=== PATIENT | female | born 1965 | race Asian ===

== ENCOUNTER 2017-09-28 05:16 | Inpatient (IN) | payer BC ==
--- NOTE | 2017-09-25 08:37 | PAT Medication Instructions ---
Service Date Sep 25, 2017. Current Home Medication List Triamcinolone Acet (Triamcinolone Acetonide), 1 APPLN TOP BID PRN for Affected Skin Folds Medication Instructions For Your Scheduled Surgery - Hold the following medications 24 hours prior to surgery: Triamcinolone Acet (Triamcinolone Acetonide), 1 APPLN TOP BID PRN for Affected Skin Folds NOTHING TO EAT OR DRINK AFTER MIDNIGHT THE NIGHT BEFORE SURGERY If you have any questions please call us at [phone] or [phone] or [phone]
[2017-09-25 09:25] LABS: BASO % 1.6 %; BASO ABS # 0.09 K/uL (0-0.2); COMPLETE YES; EOS % 3.2 %; HEMATOCRIT 40.9 % (37-47); IG% 0.2 %; LYMPH % 24.9 %; MEAN CELL VOLUME 96.2 fL (80-100); MEAN CORPUSCULAR HGB CONC 33.3 g/dl (32-36); MEAN PLATELET VOLUME 10.1 fL (7.4-10.4); MONO % 9.4 %; NEUT % 60.7 %; PLATELET COUNT 216 K/uL (130-400); RED BLOOD COUNT 4.25 M/uL (4.2-5.4); WHITE BLOOD COUNT 5.62 K/uL (4.8-10.8)
[2017-09-25 09:37] LABS: PARTIAL THROMBOPLASTIN RATIO 1.1; PROTHROMBIN TIME (PATIENT) 10.5 SECONDS (9.0-12.0)
--- NOTE | 2017-09-25 10:05 | DIAGNOSTIC IMAGING REPORT ---
TWO VIEW CHEST CLINICAL HISTORY: Preoperative examination. FINDINGS: PA and lateral chest radiographs are obtained. No prior studies are available for comparison at the time of dictation. The cardiomediastinal silhouette is unremarkable. The lungs and pleural spaces are clear. There is no pneumothorax. The bony thorax appears intact. IMPRESSION: No active disease in the chest. Electronically signed by: Rubio Vargas M.D. 09/25/2017 10:04 AM Dictated Date/Time: 09/25/2017 10:03 AM
[2017-09-25 10:22] LABS: URINE APPEARANCE CLEAR (CLEAR); URINE BILIRUBIN NEG (NEG); URINE COLOR YELLOW; URINE EPITHELIAL CELL AUTO >30 /lpf (0-5); URINE NITRITE NEG (NEG); URINE SPECIFIC GRAVITY 1.016 (1.000-1.030); UROBILINOGEN NEG (NEG)
[2017-09-25 10:25] LABS: MANUAL MICROSCOPIC REQUIRED? NO; REVIEW REQ? NO
[2017-09-25 12:32] LABS: BUN/CREATININE RATIO 13.2 (10-20); CALCIUM 8.7 mg/dl (8.5-10.1); CREATININE 0.76 mg/dl (0.60-1.20); POTASSIUM 4.2 mmol/L (3.5-5.1)
[2017-09-28] VITALS (11 sets, daily range): BP systolic 90–129; BP diastolic 44–70; PULSE 57–81; TEMP 36.2–37.5; O2SAT 98–100; Ht 162.6 cm; Wt 53.2 kg
[~2017-09-28] VITALS: Ht 162.6 cm; Wt 53.2 kg
[~2017-09-28 05:16] MED LIST: TRMCR515 TOP
[2017-09-28] MEDS ORDERED: LACTATED RINGER'S 1000ML 1,000 ML IV SCH ×2 (06:00)
[2017-09-28] MEDS ORDERED: CEFAZOLIN 2000MG IV PUSH 10 ML IV SCH (06:00)
--- NOTE | 2017-09-28 06:31 | History & Physical Bridge Note ---
H&P Re-Evaluation Bridge Note: I have examined the patient, reviewed the History & Physical and in the interval since the performance of the History & Physical I have noted the following changes of clinical significance: No changes noted She has seen cardiology yesterday for abnormal ECG/ Artifact. Echo was WNL Low risk for surgery per Dr. Vasquez
[2017-09-28] MEDS ORDERED: MIDAZOLAM HCL 1 MG/ML 2ML VIAL ONE (06:48)
[2017-09-28] MEDS ORDERED: FENTANYL CITRATE INJ 50 MCG/1 ML 2 ML VIAL ONE ×3 (06:48→10:32)
[2017-09-28] MEDS ORDERED: MINERAL OIL LIGHT 10 ML BTL ONE (06:58)
[2017-09-28] MEDS ORDERED: BUPIVACAINE 0.5 % 5 MG/1 ML MPF 30ML VIAL ONE ×2 (06:58→09:45)
[2017-09-28] MEDS ORDERED: METHYLENE BLUE 0.5% 10 ML VIAL ONE (06:58)
[2017-09-28] MEDS ORDERED: GLYCOPYRROLATE INJ 0.2 MG/ML VIAL ONE (08:26)
[2017-09-28] MEDS ORDERED: NEOSTIGMINE METHYLSULFATE 5 MG/5 ML SYR ONE (08:26)
[2017-09-28] MEDS ORDERED: ROCURONIUM BROMIDE 10 MG/ML 5 ML VIAL IV ONE ×2 (08:26→11:05)
[2017-09-28] MEDS ORDERED: PROPOFOL IV EMULSION 10 MG/ML 20 ML VIAL IV ONE (08:26)
[2017-09-28] MEDS ORDERED: METOCLOPRAMIDE HCL INJ 5 MG/ML 2 ML VIAL ONE (08:26)
[2017-09-28] MEDS ORDERED: ONDANSETRON INJ 2 MG/ML 2 ML VIAL ONE (08:26)
--- NOTE | 2017-09-28 12:12 | [facility] Post Operative Brief Note ---
Immediate Operative Summary Operative Date Sep 28, 2017. Pre-Operative Diagnosis Fibroid Uterus, Menorrhagia, Pelvic Pain Post-Operative Diagnosis Fibroid Uterus, Menorrhagia, Pelvic Pain Procedure(s) Performed Exam under Anesthesia, Total Laparoscopically assited Vaginal Hysterectomy, Bilateral Salpingectomy, Cystoscopy Surgeon Dr. Church Soaker Soda Worker Surgeon(s) Dr. Willson Estimated Blood Loss 500 cc Findings Enlarged fibroid uterus, 16 weeks size Normal fallopian tubes and ovaries Specimens A: uterus and bilateral fallopian tubes Drains Brown 200 ml Anesthesia GETA Complication(s) None Disposition L&D
[2017-09-28] MEDS ORDERED: PROMETHAZINE HCL INJ 25 MG in SODIUM CHLORIDE 0.9% 50ML 50 ML IV PRN (12:15)
[2017-09-28] MEDS ORDERED: PROMETHAZINE HCL INJ 12.5 MG in SODIUM CHLORIDE 0.9% 50ML 50 ML IV PRN (12:15)
[2017-09-28] MEDS ORDERED: ACETAMINOPHEN IV 650 MG in EMPTY BAG 0 ML IV PRN (12:15)
[2017-09-28] MEDS ORDERED: IBUPROFEN 600 MG TAB PO PRN (12:15)
[2017-09-28] MEDS ORDERED: MAGNESIUM HYDROXIDE SUSP 30 ML UDC PO PRN (12:15)
[2017-09-28] MEDS ORDERED: ONDANSETRON INJ 2 MG/ML 2 ML VIAL IV PRN ×2 (12:15→12:30)
[2017-09-28] MEDS ORDERED: MEPERIDINE HCL 50 MG/ML CARP IV PRN (12:15)
[2017-09-28] MEDS ORDERED: OXYCODONE/ACETAMINOPHEN 5-325 TAB PO PRN ×2 (12:15)
[2017-09-28] MEDS ORDERED: BISACODYL 10 MG SUPP PR PRN (12:15)
[2017-09-28] MEDS ORDERED: SIMETHICONE 80 MG CHEW PO PRN (12:15)
[2017-09-28] MEDS ORDERED: KETOROLAC TROMETHAMINE 15 MG/ML VIAL IV. PRN (12:15)
[2017-09-28] MEDS ORDERED: ACETAMINOPHEN 325 MG TAB PO PRN (12:15)
[2017-09-28] MEDS ORDERED: HYDROmorphone INJ 0.5 MG/0.5 ML SYR ONE (12:16)
[2017-09-28] MEDS ORDERED: ATROPINE SULFATE 0.1 MG/ML 5ML SYR IV PRN (12:30)
[2017-09-28] MEDS ORDERED: KETOROLAC TROMETHAMINE 30 MG/ML VIAL IV. PRN (12:30)
[2017-09-28] MEDS ORDERED: HYDROmorphone INJ 2 MG/ML SYR/VIAL IV PRN (12:30)
--- NOTE | 2017-09-28 12:39 | Anesthesiology Progress Note ---
Anesthesia Post Op Note Date & Time Sep 28, 2017 at 12:39 Vital Signs Vital Signs Past 12 Hours Date Time Temp Pulse Resp B/P (MAP) Pulse Ox O2 Delivery O2 Flow Rate FiO2 09/28/17 12:35 36.4 60 16 111/58 100 Nasal Cannula 2 09/28/17 12:25 67 16 110/57 100 Nasal Cannula 2 09/28/17 12:15 60 16 118/61 100 Oxymask 5 09/28/17 12:07 36.2 66 16 115/64 100 Oxymask 5 09/28/17 06:04 36.6 57 16 129/70 (89) 100 Room Air Notes Mental Status: alert / awake / arousable, participated in evaluation Pt Amnestic to Procedure: Yes Nausea / Vomiting: adequately controlled Pain: adequately controlled Airway Patency, RR, SpO2: stable & adequate BP & HR: stable & adequate Hydration State: stable & adequate Anesthetic Complications: no major complications apparent
--- NOTE | 2017-09-28 13:52 | OPERATIVE REPORT ---
DATE OF OPERATION: 09/28/2017 PREOPERATIVE DIAGNOSIS: The patient is a 51-year-old female Enlarged uterus with multiple fibroids Pelvic pain Heavy menstrual bleeding, Dysmenorrhea Dyspareunia Failed medical therapy and IUD Desires definitive hysterectomy. POSTOPERATIVE DIAGNOSIS: Same. PROCEDURE: Exam under anesthesia, total laparoscopic assisted vaginal hysterectomy, bilateral salpingectomy, cystoscopy. SURGEON: Dr. Sloan. TELEPHONE ORDER SUPERVISOR: Dr. Willson. ESTIMATED BLOOD LOSS: 500ml. SPECIMENS: Uterus and fallopian tubes. DRAINS: Brown drained 200 mL of clear urine. ANESTHESIA: General endotracheal. COMPLICATIONS: None. FINDINGS: Exam under anesthesia revealed anteverted, irregular shaped enlarged fibroid uterus, about 14-16 week size, nonpalpable adnexa. Intraoperative findings enlarged fibroid uterus with multiple intramural fibroids, about 16 weeks' size large, Normal fallopian tubes and ovaries. Normal peritoneal and bowel surfaces, normal uper abdomen. Cystoscopy with normal bladder mucosa and patent ureteral openings into the bladder. OPERATION AND FINDINGS: PROCEDURE: The patient was taken to the operating room where general anesthesia was given without difficulty. She was placed in dorsal lithotomy position, prepared and draped in usual sterile fashion. Exam under anesthesia was done with the above findings and a speculum was placed in the patient's vagina. Cervix was visualized, grasped with single tooth tenaculum. Uterus was sounded to be 9 cm and then a VCare manipulator with a large size cup was placed into the uterus and its balloon was inflated. Its green cap was attached to the cervix with 2 sutures at the 12 and 6 o'clock positions and then blue cap was secured tight to the green cap to provide the manipulation of uterus during surgery. Then the Brown catheter was placed in the bladder to drain during surgery and then gloves were changed. Attention was turned to the patient's abdomen, the 11 mm periumbilical skin incision was made. The fascia was identified and grasped with Luz Elena clamps and elevated. It was entered with Veress needle attached to a syringe. The normal saline test was done. It was flowing freely into the abdominal. It was suctioned back to be clear. Gas was attached to the Veress needle. Pneumoperitoneum was obtained with CO2 gas. The intrabdominal pressure was set to be 15 mmHg. The Veres needle was removed. Then the optiscope ( 11 mm trochar with scope in it) was entered under direct visualization. Intra-abdominal placement was confirmed with the scope. Then the patient was placed in the Trendelenburg position. Uterus was manipulated to be in the midline and enlarged with multiple fibroids and irregular in shape. Normal fallopian tubes and ovaries noted. Then 2 more trocars were placed in the right and left lower quadrants under direct visualization. The uterus was grasped with a grasper on the right cornua. It was retracted to open up the right adnexa for visualization. Then the right round ligament, fallopian tube and uteroovarian ligament were held, coagulatedx3 and cut with Ligasure device. Anterior leaf of the broad ligament was also cut, coagulated with the LigaSure device and the bladder flap was made partially on the right side. Attention was turned to the left uterine adnexa, same thing was done. The uterus was retracted. Left cornua of the uterus was grasped together with the fallopian tube, uterine ovarian ligament, broad ligament,. Those were coagulated and cut. The round ligament with the broad ligament was coagulated and cut with the LigaSure device, the anterior leaf of the broad ligament was also incised and a bladder flap was made and the bladder was retracted down in the anterior cul-de-sac. Hemostasis was achieved with LigaSure device on both sides. Then the uterine arteries were also coagulated on both sides multiple times. The parts of the cardinal ligament on both sides were coagulated and cut with the LigaSure device. There was difficulty visualizing due to the enlarged irregular fibroid uterus and attempt was made to incise from the vaginal cuff laparoscopically to visualize the green cap of the VCare from vagina, unable to find that. There were more tissues around the cervix that were also coagulated and cut with LigaSure device. The pelvis was irrigated and suctioned. Attempt was made to go down in the cardinal ligaments, but again it was technically difficult due to enlarged irregular shaped uterus to visualize deep in the pelvis. Then decision was made to continue the procedure from the vaginal route. The instruments were taken out from the abdomen and attention was turned to the patient's vagina. The manipulator was removed from the cervix. Cervix was visualized, grasped with single tooth tenaculum. A weighted speculum was placed and the vaginal flores were retracted. The cervix was injected with 0.5% Marcaine with epinephrine for hydrodissection. The cervix was circumferentially coagulated with the tip of Bovie and the vaginal mucosa was cut circumferentially, incised off from the cervix. Vaginal mucosa was retracted off bluntly with the tip of finger and the sponge. The posterior cul-de-sac was visualized, grasped with pickups, entered sharply with Metzenbaum scissors and the long weighted speculum was placed in the posterior cul-de-sac. Sacrouterine ligaments were felt, they were held with Sherly clamps on both sides, cut and suture ligated x2 with 0 Vicryl. Then part of the cardinal ligaments also were held with Sherly clamps, cut and suture ligated with 0 Vicryl. Anterior pubovesical ligaments was also visualized. It was incised with the Metzenbaum scissors and then anterior cul-de-sac was entered bluntly with the fingers and a bladder retractor was placed. Again some of the external tissues around the cervix were held with Sehrly clamps, cut and suture ligated and the uterus and cervix was detached from the vaginal mucosa completely. The cervix was held with single tooth tenaculum and then it was continued to the anterior wall of the uterus and from inferior to the superior portion of the uterus. With gentle traction, the whole uterus with the fibroids were delivered and sent for pathology. The ties on sacro uterine ligaments were tied in the middle. The the vaginal cuff was repaired with 0 Vicryl in a running fashion. Another layer was placed with 0 Vicryl in a running fashion. Excellent hemostasis was achieved. Then gloves and the gowns were changed and attention was turned to the patient's abdomen where the laparoscopy was started again. The pelvis was irrigated with warm normal saline and suctioned, it was hemostatic, cuff was intact. The FloSeal foam was placed over the cuff to prevent further oozing in the future and then both both fallopian tubes were held with grasper and incised with LigaSure device on both sides without difficulty and they were sent to pathology. The ovaries remained and pictures were taken. The peritoneum was reapproximated with the EndoStitch with the 0 absorbable suture over the surgical site. Excellent hemostasis was achieved. The upper abdomen, bowel surfaces, appendix, liver and stomach were visualized to be normal. Then Dr. Willson proceeded with cystoscopy. The laparoscopic view was continued by myself while during cystoscopy. The patient was given methylene blue and then cystoscopy was done. The bladder mucosa was intact and normal and it was confirmed from inside laparoscopically where a full and intact bladder was visualized. Then cystoscopy was continued and both ureteral jets were seen on both ureteral openings into the bladder and the cystoscopy was ended. Bladder was drained and placed with a new sterile Brown catheter. The decision was made to end the procedure. The trocars were removed from patient's abdomen. All the gas was emptied and the fascial incisions were grasped with Luz Elena clamps, placed [id number] stitches with 0 Vicryl on each side. The skin incisions were closed with 4-0 Monocryl in a subcuticular fashion. The patient tolerated the procedure well. Sponge, lap, needle and instrument counts were correct x3. She was given 1 gram of cefazolin before surgery and the dose was repeated after 3 hours into surgery with 600 mg of clindamycin. She was taken to recovery room in stable condition. No complications happened and I and Dr. Willson were present during whole procedure. I attest to the content of the Intraoperative Record and any orders documented therein. Any exceptions are noted below. RUSS
--- NOTE | 2017-09-28 14:31 | OB/GYN Progress Note ---
REPROGRAPHICS TECHNICIAN Progress Note Date of Service: Sep 28, 2017. Postop check Patient is seen and examined Feels well, no complaints Pain is under control with meds No CP/ SOB/ Dizziness/ N&V/ VB/ Leg pain Not OOB yet Tolerating clears Explained about the surgery and findings Shown her pictures Date Time Temp Pulse Resp B/P (MAP) Pulse Ox O2 Delivery O2 Flow Rate FiO2 09/28/17 13:15 100 Room Air 09/28/17 13:15 100 Room Air 09/28/17 13:00 59 14 105/57 100 Nasal Cannula 2 09/28/17 12:45 59 16 107/59 100 Nasal Cannula 2 09/28/17 12:35 36.4 60 16 111/58 100 Nasal Cannula 2 09/28/17 12:25 67 16 110/57 100 Nasal Cannula 2 09/28/17 12:15 60 16 118/61 100 Oxymask 5 09/28/17 12:07 36.2 66 16 115/64 100 Oxymask 5 09/28/17 06:04 36.6 57 16 129/70 (89) 100 Room Air 8-Hour Column 09/28/17 09/29/17 09/29/17 16:00 00:00 08:00 Intake Total 2700 ml Output Total 750 ml Balance 1950 ml 24-Hour Column 09/29/17 08:00 Intake Total 2700 ml Output Total 750 ml Balance 1950 ml PE: General: Alert, orientedx3, NAD CVS: S1S2 RRR Lungs: CTAB Abd: soft, NT, ND, BS+, Incisions C/D/I No VB Ext: NT, no edema, SCD's on AP: 51 yo female s/p EUA, TLH, LAVH, ROYAL Salpingectomy, Cystoscopy , pod#0 VSS Afebrile doing well Continue to routine postop care Encourage PO intake, may ambulate D/C real in am Anticipate DC tomorrow
[2017-09-28] MEDS: LACTATED RINGER'S 1000ML 1,000 ML IV SCH ×2 (15:09→23:48)
[2017-09-28] MEDS: CEFAZOLIN IV 2,000 MG in SYRINGE 0 ML IV SCH (17:53)
[2017-09-28] MEDS ORDERED: CEFAZOLIN IV 1,000 MG in DEXTROSE 5% 50ML 50 ML IV SCH (18:00)
[2017-09-28] MEDS: CLINDAMYCIN IV 600 MG in DEXTROSE 5% 50ML 50 ML IV SCH (19:22)
[2017-09-28] MEDS: DOCUSATE SODIUM 100 MG CAP PO SCH (21:45)
[2017-09-28] MEDS ORDERED: NURSING VERBAL MED ORDER ONE ×2 (21:45→23:30)
[2017-09-28 22:00] LABS: HEMATOCRIT 31.4 % (37-47); MEAN CELL VOLUME 95.4 fL (80-100); MEAN CORPUSCULAR HEMOGLOBIN 31.3 pg (25-34); MEAN PLATELET VOLUME 8.9 fL (7.4-10.4); PLATELET COUNT 165 K/uL (130-400); RED BLOOD COUNT 3.29 M/uL (4.2-5.4)
[2017-09-28] MEDS ORDERED: LACTATED RINGER'S 1000ML 500 ML IV ONE ×2 (22:00→23:30)
[2017-09-28 22:36] LABS: MEAN CORPUSCULAR HGB CONC 32.8 g/dl (32-36)
[2017-09-29] VITALS (8 sets, daily range): BP systolic 92–108; BP diastolic 45–56; PULSE 76–81; TEMP 37.1–38; O2SAT 98–100
[2017-09-29] MEDS ORDERED: METOCLOPRAMIDE HCL INJ 5 MG/ML 2 ML VIAL IV PRN
[2017-09-29] MEDS: CEFAZOLIN IV 2,000 MG in SYRINGE 0 ML IV SCH ×2 (02:08→10:24)
[2017-09-29] MEDS: CLINDAMYCIN IV 600 MG in DEXTROSE 5% 50ML 50 ML IV SCH ×2 (02:21→10:49)
[2017-09-29 06:42] LABS: BASO % 0.2 %; BASO ABS # 0.02 K/uL (0-0.2); COMPLETE YES; EOS % 0.4 %; HEMATOCRIT 28.4 % (37-47); IG% 0.3 %; LYMPH % 10.9 %; LYMPH ABS # 1.11 K/uL (1.2-3.4); MEAN CELL VOLUME 96.6 fL (80-100); MEAN CORPUSCULAR HEMOGLOBIN 31.6 pg (25-34); MEAN CORPUSCULAR HGB CONC 32.7 g/dl (32-36); MEAN PLATELET VOLUME 9.1 fL (7.4-10.4); MONO % 7.1 %; NEUT % 81.1 %; PLATELET COUNT 134 K/uL (130-400); RED BLOOD COUNT 2.94 M/uL (4.2-5.4); WHITE BLOOD COUNT 10.23 K/uL (4.8-10.8)
[2017-09-29 07:15] LABS: BUN/CREATININE RATIO 10.1 (10-20); CALCIUM 6.9 mg/dl (8.5-10.1); CREATININE 0.51 mg/dl (0.60-1.20); POTASSIUM 3.7 mmol/L (3.5-5.1)
--- NOTE | 2017-09-29 07:41 | OB/GYN Progress Note ---
CONTINUOUS IMPROVEMENT INTERN Progress Note Date of Service: Sep 29, 2017. Postop DAY #1 Patient is seen and examined Feels well, no complaints Pain is under control, /, she has not asked for pain medication since surgery yesterday No CP/ SOB/ VB/ Leg pain Not OOB yet due to being dizzy on and off She was nauseas whicc made her dizzy after she got Cefazolin Vomited once yesterday afternoon Has been Tolerating clears She is hungry and likes to eat regular food and she likes to ambulate now She was evaluated by Dr. Hauser last night due to low BP, her UOP was excellent her pulse had been stable H&H was stable Date Time Temp Pulse Resp B/P (MAP) Pulse Ox O2 Delivery O2 Flow Rate FiO2 09/29/17 04:40 37.6 81 16 102/56 (71) 98 Room Air 09/29/17 02:25 76 16 98/54 (69) 98 Room Air 09/28/17 23:50 90/52 (65) 09/28/17 23:45 99 Room Air 09/28/17 23:45 37.4 79 14 93/44 (60) 99 Room Air 09/28/17 22:20 77 92/48 (63) 99 Room Air 09/28/17 21:30 37.5 77 14 90/48 (62) 98 Room Air 09/28/17 19:20 Room Air 09/28/17 19:20 37.5 81 14 96/44 (61) 98 Room Air 09/28/17 16:20 36.9 69 18 113/56 (75) 100 Room Air 09/28/17 16:20 100 Room Air 09/28/17 15:15 36.7 62 18 99/62 (74) 100 Room Air 09/28/17 14:15 36.2 67 18 108/55 (72) 100 Room Air 09/28/17 13:45 36.3 63 18 105/56 (72) 100 Room Air 09/28/17 13:15 100 Room Air 09/28/17 13:15 100 Room Air 09/28/17 13:00 59 14 105/57 100 Nasal Cannula 2 09/28/17 12:45 59 16 107/59 100 Nasal Cannula 2 09/28/17 12:35 36.4 60 16 111/58 100 Nasal Cannula 2 09/28/17 12:25 67 16 110/57 100 Nasal Cannula 2 09/28/17 12:15 60 16 118/61 100 Oxymask 5 09/28/17 12:07 36.2 66 16 115/64 100 Oxymask 5 UOP: 1150 ml last shift Last 24 Hours Test 09/28/17 19:54 09/28/17 21:49 09/29/17 06:31 Hemoglobin 10.6 g/dL 10.3 g/dL 9.3 g/dL Hematocrit 32.0 % 31.4 % 28.4 % White Blood Count 11.00 K/uL 10.23 K/uL Red Blood Count 3.29 M/uL 2.94 M/uL Mean Corpuscular Volume 95.4 fL 96.6 fL Mean Corpuscular Hemoglobin 31.3 pg 31.6 pg Mean Corpuscular Hemoglobin Concent 32.8 g/dl 32.7 g/dl RDW Standard Deviation 45.0 fL 46.7 fL RDW Coefficient of Variation 12.9 % 13.3 % Platelet Count 165 K/uL 134 K/uL Mean Platelet Volume 8.9 fL 9.1 fL Neutrophils (%) (Auto) 81.1 % Lymphocytes (%) (Auto) 10.9 % Monocytes (%) (Auto) 7.1 % Eosinophils (%) (Auto) 0.4 % Basophils (%) (Auto) 0.2 % Neutrophils # (Auto) 8.30 K/uL Lymphocytes # (Auto) 1.11 K/uL Monocytes # (Auto) 0.73 K/uL Eosinophils # (Auto) 0.04 K/uL Basophils # (Auto) 0.02 K/uL Immature Granulocyte % (Auto) 0.3 % Immature Granulocyte # (Auto) 0.03 K/uL Sodium Level 139 mmol/L Potassium Level 3.7 mmol/L Chloride Level 110 mmol/L Carbon Dioxide Level 26 mmol/L Anion Gap 3.0 mmol/L Blood Urea Nitrogen 5 mg/dl Creatinine 0.51 mg/dl Est Creatinine Clear Calc Drug Dose 112.1 ml/min Estimated GFR () 130.9 Estimated GFR (Non- 112.9 BUN/Creatinine Ratio 10.1 Random Glucose 87 mg/dl Calcium Level 6.9 mg/dl PE: General: Alert, orientedx3, NAD CVS: S1S2 RRR Lungs: CTAB Abd: soft, flat, NT, ND, BS+, Incisions C/D/I Minimal dark VB Ext: NT, no edema, SCD's on AP: 51 yo s/p EUA, TLH, LAVH, BL Salpingectomy, Cystoscopy, POD#1 VSS Afebrile doing well Continue to routine postop care Encourage PO intake, may ambulate D/C real now Anticipate DC this afternoon
[2017-09-29] MEDS ORDERED: OXYC-57 PO (07:42)
[2017-09-29] MEDS ORDERED: METO-157 PO (07:42)
[2017-09-29] MEDS ORDERED: MTR600X PO (07:42)
--- NOTE | 2017-09-29 07:46 | Discharge Instructions ---
Discharge Instructions Date of Service Sep 29, 2017. Admission Reason for Admission: Fibroid Uterus, Menorrhagia, Pelvic Pain Discharge Discharge Diagnosis / Problem: LAVH, Bilateral salpingectomy, Cystoscopy Discharge Goals Goal(s): Routine recovery after surgery Activity Recommendations Activity Limitations: as noted below Lifting Limitations: no more than 10 pounds Exercise/Sports Limitations: until after follow-up appointment May Resume Sexual Activity: after follow-up appointment Shower/Bathe: keep incision dry Driving or Machine Use: SPECIAL CARE INSTRUCTIONS: * Check temperature twice daily for one week. Report any elevation over 100.4 degrees Fahrenheit (38.0 degrees Celsius). * Call office in the next few days for return appointment. * You may experience some vaginal spotting and/or bleeding, this is normal for one or two weeks and should not alarm you. * Post-operative discomfort may consist of a sore throat, a "bloated" feeling and pain in the shoulders. These are normal symptoms which usually only last for two or three days. * Nothing per vagina for 8 weeks * No exercise or strenuous activity for 2 weeks, increase your activity slowly as tolerated after 2 weeks Discussed this with your surgeon in the office * Call with fever/ chills/ unable to pass gas or move your bowels, chest pain, shortness of breath, leg swelling or pain FOLLOW UP VISIT: Keep any scheduled doctor appointments. . Current Hospital Diet Patient's current hospital diet: Clear Liquid Diet Discharge Diet Recommended Diet: Regular Diet Procedures Procedures Performed: Exam under Anesthesia, Total Laparoscopically assited Vaginal Hysterectomy, Bilateral Salpingectomy, Cystoscopy Pending Studies Studies pending at discharge: no Medical Emergencies . Who to Call and When: Medical Emergencies: If at any time you feel your situation is an emergency, please call 911 immediately. . Non-Emergent Contact Non-Emergency issues call your: Surgeon Call Non-Emergent contact if: you have a fever, temperature is above 100.5, your pain is not controlled, your pain is worsening, your pain is unusual for you, wound has increased drainage, wound has increased redness, wound has increased pain, you have any medication questions . . "Provider Documentation" section prepared by Cade Sloan. . VTE Core Measure Inpt VTE Proph given/why not?: Treatment not indicated
[2017-09-29] MEDS: DOCUSATE SODIUM 100 MG CAP PO SCH (09:00)
--- NOTE | 2017-09-29 09:35 | OB/GYN Progress Note ---
PROFESSIONAL CASTER Progress Note Date of Service: Sep 29, 2017. Patient is reevaluated She has not been OOB yet She ate her breakfast with no N&V She does not wan to take pain pills because she thinks they will give her nausea She is sensitive to all medications which make her nauseous. She does not want to take the next dose of IV AB Recommended to complete 24 hours of IV AB to prevent infection Explained about surgery, was long, Laparoscopic and vaginal route Discussed in details options for nausea and pain management Recommended ambulation Aware of risk of DVT, PE if immobile After long discussion she decided to try Zofran ODT and then oral pain meds Al questions were answered
[2017-09-29] MEDS ORDERED: ONDANSETRON 4MG OD TAB PO PRN (09:45)
--- NOTE | 2017-09-29 11:34 | OB/GYN Progress Note ---
PROFILER Progress Note Date of Service: Sep 29, 2017. Patient temp is 38 F She feels well no complaints No sorethroat/ signs of URI or LRI No cough/ sputum No dysuria/ leg pain or swelling PE: [place] moist oropharynx, Nect [place] no LAP felt CVS: S1S2 RRR Lungs: CTAB Abd: soft, NT, NT, Dressings dry Dark minimal spot on pad Ext: NT, No edema Last 24 Hours Test 09/28/17 19:54 09/28/17 21:49 09/29/17 06:31 09/29/17 11:27 Hemoglobin 10.6 g/dL 10.3 g/dL 9.3 g/dL Hematocrit 32.0 % 31.4 % 28.4 % White Blood Count 11.00 K/uL 10.23 K/uL Red Blood Count 3.29 M/uL 2.94 M/uL Mean Corpuscular Volume 95.4 fL 96.6 fL Mean Corpuscular Hemoglobin 31.3 pg 31.6 pg Mean Corpuscular Hemoglobin Concent 32.8 g/dl 32.7 g/dl RDW Standard Deviation 45.0 fL 46.7 fL RDW Coefficient of Variation 12.9 % 13.3 % Platelet Count 165 K/uL 134 K/uL Mean Platelet Volume 8.9 fL 9.1 fL Neutrophils (%) (Auto) 81.1 % Lymphocytes (%) (Auto) 10.9 % Monocytes (%) (Auto) 7.1 % Eosinophils (%) (Auto) 0.4 % Basophils (%) (Auto) 0.2 % Neutrophils # (Auto) 8.30 K/uL Lymphocytes # (Auto) 1.11 K/uL Monocytes # (Auto) 0.73 K/uL Eosinophils # (Auto) 0.04 K/uL Basophils # (Auto) 0.02 K/uL Immature Granulocyte % (Auto) 0.3 % Immature Granulocyte # (Auto) 0.03 K/uL Sodium Level 139 mmol/L Potassium Level 3.7 mmol/L Chloride Level 110 mmol/L Carbon Dioxide Level 26 mmol/L Anion Gap 3.0 mmol/L Blood Urea Nitrogen 5 mg/dl Creatinine 0.51 mg/dl Est Creatinine Clear Calc Drug Dose 112.1 ml/min Estimated GFR () 130.9 Estimated GFR (Non- 112.9 BUN/Creatinine Ratio 10.1 Random Glucose 87 mg/dl Calcium Level 6.9 mg/dl All questions were answered Continue to monitor
--- NOTE | 2017-09-29 13:09 | DIAGNOSTIC IMAGING REPORT ---
CHEST 2 VIEWS ROUTINE CLINICAL HISTORY: Postoperative fever. COMPARISON STUDY: Chest radiograph September 25, 2017. FINDINGS: A nipple shadow projects over the right lower lung. Trace pneumoperitoneum is likely postsurgical. There is no evidence of pulmonary edema. There is no pneumothorax. There may be trace bilateral pleural effusions. Bibasilar opacities are noted. IMPRESSION: 1. Interval development of bibasilar opacities which could reflect pneumonia or atelectasis. 2. Suspected trace bilateral pleural effusions. 3. Trace pneumoperitoneum which is likely postsurgical. Electronically signed by: Calin Chopra M.D. 09/29/2017 1:08 PM Dictated Date/Time: 09/29/2017 1:06 PM
[2017-09-29 13:38] LABS: URINE APPEARANCE CLEAR (CLEAR); URINE BILIRUBIN NEG (NEG); URINE COLOR YELLOW; URINE EPITHELIAL CELL AUTO >30 /lpf (0-5); URINE NITRITE NEG (NEG); URINE SPECIFIC GRAVITY 1.014 (1.000-1.030); UROBILINOGEN NEG (NEG)
[2017-09-29 13:40] LABS: MANUAL MICROSCOPIC REQUIRED? NO; REVIEW REQ? NO
[2017-09-29] MEDS ORDERED: ZFRODT4HP PO (14:47)
[2017-09-29] MEDS ORDERED: AMOX1TAB43 PO (14:47)
[2017-09-29] MEDS ORDERED: ONDA4TAB10 SL (14:54)
--- NOTE | 2017-09-29 15:30 | OB/GYN Progress Note ---
DE ICER FINISHER Progress Note Date of Service: Sep 29, 2017. Patient is reevaluated She states she feels much better No more N&V No fever/ chills Pain is under control with oral meds Discussed the results CXR: Atelectasis vs pneumonia Discussed with hospitalist they are okay sending her home with Augmentin Plan to repeat vitals if still afebrile d/c home after dinner Will start 1st dose of Augmentin tonight All questions were answered Discussed about postop care, when to call All questions were answered She was very thankful
[2017-09-29] MEDS ORDERED: AMOXICILLIN/CLAVULANATE TAB 875 MG TAB PO SCH (17:30)
== END 2017-09-29 17:45 | disposition home or self-care (01) | DRG 743 ==
LOC: C.ACU 05:16 → C.MS4N 06:00 → ENRESERV 12:54
PROVIDERS: ADMIT Obstetrics & Gynecology; ATTEND Obstetrics & Gynecology
PROC: 0UT9FZZ Resection of Uterus, Via Natural or Artificial Opening With Percutaneous Endoscopic Assistance (ICD-10-PCS; principal; 2017-09-28 07:00)
PROC: 0UT7FZZ Resection of Bilateral Fallopian Tubes, Via Natural or Artificial Opening With Percutaneous Endoscopic Assistance (ICD-10-PCS; principal; 2017-09-28 07:00)
PROC: 0TJB8ZZ Inspection of Bladder, Via Natural or Artificial Opening Endoscopic (ICD-10-PCS; 2017-09-28 07:00)
DX: D25.9 Leiomyoma of uterus, unspecified (principal); N92.0 Excessive and frequent menstruation with regular cycle; R10.2 Pelvic and perineal pain; R50.9 Fever, unspecified

== ENCOUNTER 2017-10-05 20:16 | Inpatient (IN) | payer BC ==
[~2017-10-05] VITALS: Ht 162.6 cm; Wt 54.4 kg
[~2017-10-05 20:16] MED LIST changes: +AMOX1TAB43 PO; +METO-157 PO; +MTR600X PO; +ONDA4TAB10 SL; +OXYC-57 PO; +ZFRODT4HP PO
[2017-10-05] MEDS ORDERED: SODIUM CHLORIDE 0.9% 1000ML 1,000 ML IV STA (20:33)
[2017-10-05] MEDS ORDERED: OPTIRAY 320 IV PRN (20:45)
[2017-10-05 21:23] LABS: BASO % 0.3 %; BASO ABS # 0.03 K/uL (0-0.2); EOS % 1.5 %; EOS ABS # 0.16 K/uL (0-0.5); HEMATOCRIT 31.4 % (37-47); HEMOGLOBIN 10.8 g/dL (12.0-16.0); IG# 0.03 K/uL (0.00-0.02); LYMPH % 6.3 %; LYMPH ABS # 0.67 K/uL (1.2-3.4); MEAN CORPUSCULAR HEMOGLOBIN 32.3 pg (25-34); MEAN CORPUSCULAR HGB CONC 34.4 g/dl (32-36); MEAN PLATELET VOLUME 9.2 fL (7.4-10.4); MONO % 8.5 %; MONO ABS # 0.91 K/uL (0.11-0.59); NEUT % 83.1 %; NEUT ABS # 8.92 K/uL (1.4-6.5); PLATELET COUNT 272 K/uL (130-400); RED CELL DISTRIBUTION WIDTH CV 12.8 % (11.5-14.5); RED CELL DISTRIBUTION WIDTH SD 44.2 fL (36.4-46.3); WHITE BLOOD COUNT 10.72 K/uL (4.8-10.8)
--- NOTE | 2017-10-05 21:44 | DIAGNOSTIC IMAGING REPORT ---
ABD/PELVIS IV CONTRAST ONLY CLINICAL HISTORY: 51 years-old Female presenting with lower abd pain, bloating, recent TVH. TECHNIQUE: Multidetector CT of the abdomen and pelvis was performed after the administration of intravenous contrast. IV contrast: None. A dose lowering technique was used consistent with the principles of ALARA (as low as reasonably achievable). COMPARISON: None. CT DOSE (mGy.cm): The estimated cumulative dose is 291.94 mGy.cm. FINDINGS: Custodial Aide topogram: Unremarkable. Lung bases: Minimal dependent changes likely atelectasis. Normal heart size. No pericardial or pleural effusion. Liver: Normal morphology. Mild periportal edema. No liver lesion. Patent hepatic vasculature. Biliary: No intrahepatic or extrahepatic biliary ductal dilatation. Normal gallbladder. Pancreas: Normal. Spleen: Normal. Adrenal glands: Normal. Kidneys and ureters: Normal. No hydronephrosis. Bladder: Circumferential bladder wall thickening. Pelvic organs: Uterus surgically absent. Gas fluid noted in the region of the edematous vaginal cuff or cervix if a subtotal hysterectomy was performed. Prominent ovaries. Bowel: Wall thickening of the rectum likely secondarily reactive. Mild stool burden. Mild small bowel wall thickening of several pelvic loops also noted. No bowel obstruction. Peritoneal cavity: Small amount of pelvic ascites with diffuse mesenteric and omental infiltration in the pelvis. Lymph nodes: No enlarged lymph nodes in the abdomen or pelvis. Vasculature: Aorta and IVC patent and normal in caliber. Prominent ovarian vasculature. The gonadal vein is not significantly dilated. Abdominal wall: Normal. Musculoskeletal: Normal. IMPRESSION: 1. Inflammatory changes throughout the pelvis appear centered at the vaginal cuff, which is edematous and gas and fluid-filled. Correlate with recent or remote surgical history. Findings are concerning for vaginitis and/or pelvic inflammatory disease. Prominence of the bilateral ovaries could be reactive or also suggest involvement in inflammatory/infectious pathology. Wall thickening of pelvic small bowel loops in the rectum is likely secondarily reactive. Gynecologic consultation recommended. 2. Periportal edema may be secondary to aggressive volume resuscitation. Electronically signed by: Michael Hernandez M.D. 10/05/2017 9:43 PM Dictated Date/Time: 10/05/2017 9:34 PM
[2017-10-05 21:54] LABS: ALBUMIN 2.9 gm/dl (3.4-5.0); TOTAL PROTEIN 6.1 gm/dl (6.4-8.2)
[2017-10-05] MEDS ORDERED: PIPERACILLIN/TAZOBACTAM 4.5 GM/100ML D5W IV STA (21:54)
--- NOTE | 2017-10-05 22:19 | EMERGENCY ROOM VISIT NOTE ---
History Report prepared by Lesli: Suha Gomez Under the Supervision of: Dr. Rome Barry M.D. First contact with patient: 20:24 Chief Complaint: FEVER Stated Complaint: FEVER 101.4. S/P SURGERY 1 WK AGO History of Present Illness The patient is a 51 year old female who presents to the Emergency Room with complaints of a fever beginning 4 days ago. The patient had a hysterectomy done by Dr. Church on September 28. The patient has been having fevers for 4 days, so she called an on-call service and was directed to the ED. She reports that she took 600 mg of Motrin at 1400 today which did not help. The patient also reports having abdominal pain and shortness of breath. The patient states that she is on Amoxicillin and that she has been having diarrhea. She denies being around anyone with a cold or diarrhea. She reports having light pink vaginal discharge, but no blood in her stool. Pt denies LOC, headache, diaphoresis, visual changes, neck pain, chest pain nausea, vomiting, back pain, melena, hematochezia, numbness, weakness, lymphadenopathy, rash, or other complaints. Source of History: patient Onset: 4 days ago Position: other (global) Quality: other (fever) Associated Symptoms: + SOB (she notes some mild difficulty taking a deep breath because of the abdominal pain), + abdominal pain, + diarrhea, No LOC Review of Systems See HPI for pertinent positives and negatives. A total of ten systems were reviewed and were otherwise negative. Past Medical & Surgical Medical Problems: (1) Fibroid uterus Surgical Problems: (1) S/P hysterectomy Family History No pertinent family history stated. Social History Smoking Status: Never Smoker Marital Status: Current/Historical Medications Scheduled Amoxicillin & Pot Clavulanate (Amoxicillin/Clavulanate P), 1 TAB PO BID Metoclopramide (Reglan), 10 MG PO Q6H Scheduled PRN Ibuprofen (Ibuprofen), 600 MG PO Q6H PRN for Pain,MELVIN,cramping,or fever Ondansetron (Ondansetron Odt), 4 MG PO Q4H PRN for Nausea Oxycodone/Acetaminophen 5MG/325MG (Percocet 5MG/325MG), 1 TAB PO Q4H PRN for Pain (pain scale 1-5) Triamcinolone Acet (Triamcinolone Acetonide), 1 APPLN TOP BID PRN for Affected Skin Folds Allergies Coded Allergies: Amoxicillin (Verified Adverse Reaction, Severe, DIARRHEA, 10/05/17) Clavulanic Acid (Verified Adverse Reaction, Severe, DIARRHEA, 10/05/17) Physical Exam Vital Signs Date Time Temp Pulse Resp B/P (MAP) Pulse Ox O2 Delivery O2 Flow Rate FiO2 10/05/17 21:10 91 16 108/57 99 Room Air 10/05/17 20:21 37.4 110 18 107/51 98 Room Air Physical Exam GENERAL: Awake, alert, well-appearing, in no distress HENT: Normocephalic, atraumatic. Oropharynx unremarkable. EYES: Normal conjunctiva. Sclera non-icteric. NECK: Supple. No nuchal rigidity. FROM. No JVD. RESPIRATORY: Clear to auscultation. CARDIAC: Regular rate, normal rhythm. Extremities warm and well perfused. Pulses equal. ABDOMEN: Soft, non-distended. Bilateral lower quadrant tenderness. Mild rebound and guarding. No masses. RECTAL: Deferred. MUSCULOSKELETAL: Chest examination reveals no tenderness. The back is symmetrical on inspection without obvious abnormality. There is no CVA tenderness to palpation. No joint edema. LOWER EXTREMITIES: Calves are equal size bilaterally and non-tender. No edema. No discoloration. NEURO: Normal sensorium. No sensory or motor deficits noted. SKIN: No rash or jaundice noted. Medical Decision & Procedures ER Provider Diagnostic Interpretation: ABD/PELVIS IV CONTRAST ONLY CLINICAL HISTORY: 51 years-old Female presenting with lower abd pain, bloating, recent TVH. TECHNIQUE: Multidetector CT of the abdomen and pelvis was performed after the administration of intravenous contrast. IV contrast: None. A dose lowering technique was used consistent with the principles of ALARA (as low as reasonably achievable). COMPARISON: None. CT DOSE (mGy.cm): The estimated cumulative dose is 291.94 mGy.cm. FINDINGS: Shop Fitter topogram: Unremarkable. Lung bases: Minimal dependent changes likely atelectasis. Normal heart size. No pericardial or pleural effusion. Liver: Normal morphology. Mild periportal edema. No liver lesion. Patent hepatic vasculature. Biliary: No intrahepatic or extrahepatic biliary ductal dilatation. Normal gallbladder. Pancreas: Normal. Spleen: Normal. Adrenal glands: Normal. Kidneys and ureters: Normal. No hydronephrosis. Bladder: Circumferential bladder wall thickening. Pelvic organs: Uterus surgically absent. Gas fluid noted in the region of the edematous vaginal cuff or cervix if a subtotal hysterectomy was performed. Prominent ovaries. Bowel: Wall thickening of the rectum likely secondarily reactive. Mild stool burden. Mild small bowel wall thickening of several pelvic loops also noted. No bowel obstruction. Peritoneal cavity: Small amount of pelvic ascites with diffuse mesenteric and omental infiltration in the pelvis. Lymph nodes: No enlarged lymph nodes in the abdomen or pelvis. Vasculature: Aorta and IVC patent and normal in caliber. Prominent ovarian vasculature. The gonadal vein is not significantly dilated. Abdominal wall: Normal. Musculoskeletal: Normal. IMPRESSION: 1. Inflammatory changes throughout the pelvis appear centered at the vaginal cuff, which is edematous and gas and fluid-filled. Correlate with recent or remote surgical history. Findings are concerning for vaginitis and/or pelvic inflammatory disease. Prominence of the bilateral ovaries could be reactive or also suggest involvement in inflammatory/infectious pathology. Wall thickening of pelvic small bowel loops in the rectum is likely secondarily reactive. Gynecologic consultation recommended. 2. Periportal edema may be secondary to aggressive volume resuscitation. Electronically signed by: Michael Hernandez M.D. 10/05/2017 9:43 PM Dictated Date/Time: 10/05/2017 9:34 PM Laboratory Results 10/05/17 21:11 Red Blood Count 3.34, Mean Corpuscular Volume 94.0, Mean Corpuscular Hemoglobin 32.3, Mean Corpuscular Hemoglobin Concent 34.4, Mean Platelet Volume 9.2, Neutrophils (%) (Auto) 83.1, Lymphocytes (%) (Auto) 6.3, Monocytes (%) (Auto) 8.5, Eosinophils (%) (Auto) 1.5, Basophils (%) (Auto) 0.3, Neutrophils # (Auto) 8.92, Lymphocytes # (Auto) 0.67, Monocytes # (Auto) 0.91, Eosinophils # (Auto) 0.16, Basophils # (Auto) 0.03 Test 10/05/17 21:05 10/05/17 21:11 Urine Color YELLOW Urine Appearance CLEAR (CLEAR) Urine pH 8.0 (4.5-7.5) Urine Specific [place] 1.018 (1.000-1.030) Urine Protein NEG (NEG) Urine Glucose (UA) NEG (NEG) Urine Ketones NEG (NEG) Urine Occult Blood 2+ (NEG) Urine Nitrite NEG (NEG) Urine Bilirubin NEG (NEG) Urine Urobilinogen NEG (NEG) Urine Leukocyte Esterase MODERATE (NEG) Urine WBC (Auto) 10-30 /hpf (0-5) Urine RBC (Auto) 5-10 /hpf (0-4) Urine Hyaline Casts (Auto) 1-5 /lpf (0-5) Urine Epithelial Cells (Auto) >30 /lpf (0-5) Urine Bacteria (Auto) NEG (NEG) White Blood Count 10.72 K/uL (4.8-10.8) Red Blood Count 3.34 M/uL (4.2-5.4) Hemoglobin 10.8 g/dL (12.0-16.0) Hematocrit 31.4 % (37-47) Mean Corpuscular Volume 94.0 fL (80-100) Mean Corpuscular Hemoglobin 32.3 pg (25-34) Mean Corpuscular Hemoglobin Concent 34.4 g/dl (32-36) Platelet Count 272 K/uL (130-400) Mean Platelet Volume 9.2 fL (7.4-10.4) Neutrophils (%) (Auto) 83.1 % Lymphocytes (%) (Auto) 6.3 % Monocytes (%) (Auto) 8.5 % Eosinophils (%) (Auto) 1.5 % Basophils (%) (Auto) 0.3 % Neutrophils # (Auto) 8.92 K/uL (1.4-6.5) Lymphocytes # (Auto) 0.67 K/uL (1.2-3.4) Monocytes # (Auto) 0.91 K/uL (0.11-0.59) Eosinophils # (Auto) 0.16 K/uL (0-0.5) Basophils # (Auto) 0.03 K/uL (0-0.2) RDW Standard Deviation 44.2 fL (36.4-46.3) RDW Coefficient of Variation 12.8 % (11.5-14.5) Immature Granulocyte % (Auto) 0.3 % Immature Granulocyte # (Auto) 0.03 K/uL (0.00-0.02) Total Bilirubin 0.4 mg/dl (0.2-1) Direct Bilirubin 0.1 mg/dl (0-0.2) Aspartate Amino Transf (AST/SGOT) 13 U/L (15-37) Alanine Aminotransferase (ALT/SGPT) 16 U/L (12-78) Alkaline Phosphatase 56 U/L (45-117) Total Protein 6.1 gm/dl (6.4-8.2) Albumin 2.9 gm/dl (3.4-5.0) Lipase 94 U/L (73-393) Laboratory results reviewed by me Medications Administered Medications (Trade) Dose Ordered Sig/Ingrid Route Start Time Stop Time Status Last Admin Dose Admin Sodium Chloride 1,000 ml @ 999 mls/hr Q1H1M STAT IV 10/05/17 20:33 10/05/17 21:33 DC 10/05/17 21:15 999 MLS/HR Piperacillin Sod/ Tazobactam Sod (Zosyn Iv) 4.5 gm NOW STAT IV 10/05/17 21:54 10/05/17 21:55 DC 10/05/17 22:04 4.5 GM ED Course 2027: The patient was evaluated in room B5. A complete history and physical exam was performed. 2032: Ordered Sodium Chloride 1,000 ml @ 999 mls/hr IV. 2149: CT imaging resulted. Educated the patient. Discussed imaging with OB/ POLISHER BRASS on-call. 2199: Discussed the case with her surgeon, Dr. Church. She will evaluate the patient for further management in the hospital. Medical Decision Triage Nursing notes reviewed. The patient's presentation and history were concerning for fever and lower abdominal pain since surgery. Etiologies such as postoperative infection, UTI, colitis, C. difficile infection , viral syndrome, pneumonia,, sepsis, bacteremia, as well as others were entertained. The patient was evaluated. She was uncomfortable. She declined analgesia. She was hydrated. The patient had an unremarkable i-STAT. She was sent for CT imaging with IV contrast. This revealed the findings as noted above. The patient was encouraged to provide a stool specimen. She had no leukocytosis on her CBC. LFTs were unremarkable. Urinalysis did not show any clear evidence of infection. I did consult with FLIGHT CONTROL TOWER OPERATOR, Dr. Willson and he recommended a dose of IV Zosyn and potential discharged home on Bactrim and Flagyl. I discussed this with the patient within her surgeon, Dr. Church called and was concerned about her worsening course and the common acute nature of her surgery. She felt keeping her in the hospital for observation and IV antibiotics was the safe option. I explained this to the patient and her significant other. She evaluated the patient in the Emergency Room for further management. Impression Primary Impression: Postoperative wound infection Additional Impression: Fever Scribe Attestation The scribe's documentation has been prepared under my direction and personally reviewed by me in its entirety. I confirm that the note above accurately reflects all work, treatment, procedures, and medical decision making performed by me. Departure Information Dispostion Being Evaluated By Surgeon Referrals Canan. Sloan MD (PCP) Patient Instructions My [facility] Problem Qualifiers
[2017-10-05] MEDS ORDERED: METRONIDAZOLE 500MG / 100ML NSS IV STA (23:42)
[2017-10-05] MEDS ORDERED: ACETAMINOPHEN 325 MG TAB ONE (23:43)
[2017-10-05] MEDS ORDERED: IBUPROFEN 600 MG TAB PO PRN (23:45)
[2017-10-05] MEDS ORDERED: ACETAMINOPHEN 325 MG TAB PO PRN (23:45)
[2017-10-05] MEDS ORDERED: ONDANSETRON 4MG OD TAB PO PRN (23:45)
--- NOTE | 2017-10-05 23:52 | History and Physical ---
History & Physical Date & Time of Service: Oct 05, 2017 at 23:37 Chief Complaint: Fever 101.4. S/P Surgery 1 Wk Ago Primary Care Physician: Canan. Sloan MD History of Present Illness Source: patient Patient is a 51 yo ( Adopted [place]) female who is s/p EUA, LAVH, Bilateral salpingectomy, Cystoscopy on 09/28/17 for enlarged uterus with multiple fibroids ( 337 gr uterus) She was d/c'd on 09/29 on oral Augmentin I called her daily and she was doing well. She was taking her temp at home and had been 36.5 to 37.5 She went to work yesterday 10/04 ( [employer]) and came home. She felt sick and feverish. Her temp was 37.5 She has not called She felt more feverish today Her temp was 38.5 at home Her apetite was diminished and she wanted to stay i bed She then called us and recommended to come to ED She denies CP/SOB/ N&V/ Dysuria/ VB Her pain has been under control with Motrin only She is able to eat regular food with no N&V She has been having loose stools, no blood No cold or UTI symptoms She has been having light pink d/c since surgery Her temp was 37.6 at admission She now feels more feverish with MELVIN Repeat 38.8 She had blood work,U/A, CT of abdomen and pelvis Suggesting cuff cellulitis, no abscess, bowels appear normal She was started on IV Zosyn by ED physician. Past Medical/Surgical History Surgical Problems: (1) S/P hysterectomy Status: Resolved 2) Myomectomy Social History Smoking Status: Never Smoker Smokeless Tobacco Use: No Alcohol Use: none Drug Use: none Marital Status: Housing status: lives with family Occupational Status: employed Immunizations History of Influenza Vaccine: Yes History of Tetanus Vaccine?: Unknown History of Pneumococcal: Unknown Multi-Drug Resistant Organisms History of MDRO: No Allergies Coded Allergies: Amoxicillin (Verified Adverse Reaction, Severe, DIARRHEA, 10/05/17) Clavulanic Acid (Verified Adverse Reaction, Severe, DIARRHEA, 10/05/17) Home Medications Scheduled Amoxicillin & Pot Clavulanate (Amoxicillin/Clavulanate P), 1 TAB PO BID Metoclopramide (Reglan), 10 MG PO Q6H Scheduled PRN Ibuprofen (Ibuprofen), 600 MG PO Q6H PRN for Pain,MELVIN,cramping,or fever Ondansetron (Ondansetron Odt), 4 MG PO Q4H PRN for Nausea Oxycodone/Acetaminophen 5MG/325MG (Percocet 5MG/325MG), 1 TAB PO Q4H PRN for Pain (pain scale 1-5) Triamcinolone Acet (Triamcinolone Acetonide), 1 APPLN TOP BID PRN for Affected Skin Folds Review of Systems Constitutional: + fever, + chills, + sweats, + weight loss, + weakness, + fatigue, + problem reported ENT: + sore throat, + trouble swallowing, No hearing loss, No unusual epistaxis , No nasal symptoms, No tinnitus, No dental problems, No problem reported Respiratory: + cough, + sputum, + wheezing, No shortness of breath, No dyspnea on exertion, No dyspnea at rest, No hemoptysis, No problem reported Cardiovascular: + chest pain, + orthopnea, + edema, No PND, No claudication, No palpitations, No problem reported Abdomen: + pain, + nausea, + vomiting, + diarrhea, + constipation, + GI bleeding, + problem reported (decreased apetite) Musculoskeletal: + joint pain, + muscle pain, No swelling, No calf pain, No problem reported Genitourinary - Female: + dysuria, + urinary frequency, + urinary urgency, + urinary incontinence, + urinary retention, + hematuria, No dysmenorrhea, No menorrhagia, No metrorrhagia, No rash, No vaginal bleeding, No vaginal discharge , No vaginal itching, No vulvodynia, No , No problem reported Neurologic: + weakness, + numbness/tingling, + balance problems, No memory loss , No paralysis, No vertigo, No problem reported Physical Exam Vital Signs Date Time Temp Pulse Resp B/P (MAP) Pulse Ox O2 Delivery O2 Flow Rate FiO2 10/05/17 23:31 38.8 10/05/17 22:34 97 16 101/52 98 Room Air 10/05/17 21:10 91 16 108/57 99 Room Air 10/05/17 20:21 37.4 110 18 107/51 98 Room Air General Appearance: + mild distress, + thin Head: normocephalic, atraumatic Eyes: normal inspection, PERRL Neck: supple, no adenopathy Respiratory/Chest: chest non-tender, lungs clear, normal breath sounds Cardiovascular: regular rate, rhythm, no edema Abdomen/GI: normal bowel sounds, soft, + tenderness (lower abdomen tenderness, no rebound, no distention), + pertinent finding (incisions C/D/I) Genitourinary - Female: external genitalia normal, + pertinent finding ( Vaginal cuff intact, sutures intact, appears yellow/ white, inflamed) Back: normal inspection, no CVA tenderness Extremities/Musculoskelatal: normal inspection, no calf tenderness, non-tender Neurologic/Psych: oriented x 3, + pertinent finding (no neck stiffness) Skin: normal color, warm/dry Diagnostics Laboratory Results Results Past 24 Hours Test 10/05/17 21:05 10/05/17 21:11 Range/Units Urine Color YELLOW Urine Appearance CLEAR CLEAR Urine pH 8.0 4.5-7.5 Urine Specific [place] 1.018 1.000-1.030 Urine Protein NEG NEG Urine Glucose (UA) NEG NEG Urine Ketones NEG NEG Urine Occult Blood 2+ NEG Urine Nitrite NEG NEG Urine Bilirubin NEG NEG Urine Urobilinogen NEG NEG Urine Leukocyte Esterase MODERATE NEG Urine WBC (Auto) 10-30 0-5 /hpf Urine RBC (Auto) 5-10 0-4 /hpf Urine Hyaline Casts (Auto) 1-5 0-5 /lpf Urine Epithelial Cells (Auto) >30 0-5 /lpf Urine Bacteria (Auto) NEG NEG White Blood Count 10.72 4.8-10.8 K/uL Red Blood Count 3.34 4.2-5.4 M/uL Hemoglobin 10.8 12.0-16.0 g/dL Hematocrit 31.4 37-47 % Mean Corpuscular Volume 94.0 80-100 fL Mean Corpuscular Hemoglobin 32.3 25-34 pg Mean Corpuscular Hemoglobin Concent 34.4 32-36 g/dl Platelet Count 272 130-400 K/uL Mean Platelet Volume 9.2 7.4-10.4 fL Neutrophils (%) (Auto) 83.1 % Lymphocytes (%) (Auto) 6.3 % Monocytes (%) (Auto) 8.5 % Eosinophils (%) (Auto) 1.5 % Basophils (%) (Auto) 0.3 % Neutrophils # (Auto) 8.92 1.4-6.5 K/uL Lymphocytes # (Auto) 0.67 1.2-3.4 K/uL Monocytes # (Auto) 0.91 0.11-0.59 K/uL Eosinophils # (Auto) 0.16 0-0.5 K/uL Basophils # (Auto) 0.03 0-0.2 K/uL RDW Standard Deviation 44.2 36.4-46.3 fL RDW Coefficient of Variation 12.8 11.5-14.5 % Immature Granulocyte % (Auto) 0.3 % Immature Granulocyte # (Auto) 0.03 0.00-0.02 K/uL Total Bilirubin 0.4 0.2-1 mg/dl Direct Bilirubin 0.1 0-0.2 mg/dl Aspartate Amino Transf (AST/SGOT) 13 15-37 U/L Alanine Aminotransferase (ALT/SGPT) 16 12-78 U/L Alkaline Phosphatase 56 45-117 U/L Total Protein 6.1 6.4-8.2 gm/dl Albumin 2.9 3.4-5.0 gm/dl Lipase 94 73-393 U/L Microbiology Results 10/05/17 Urine Culture, Received Pending Diagnostic Radiology Last 24 Hours Test 10/05/17 21:05 10/05/17 21:11 Urine Color YELLOW Urine Appearance CLEAR Urine pH 8.0 Urine Specific [place] 1.018 Urine Protein NEG Urine Glucose (UA) NEG Urine Ketones NEG Urine Occult Blood 2+ Urine Nitrite NEG Urine Bilirubin NEG Urine Urobilinogen NEG Urine Leukocyte Esterase MODERATE Urine WBC (Auto) 10-30 /hpf Urine RBC (Auto) 5-10 /hpf Urine Hyaline Casts (Auto) 1-5 /lpf Urine Epithelial Cells (Auto) >30 /lpf Urine Bacteria (Auto) NEG White Blood Count 10.72 K/uL Red Blood Count 3.34 M/uL Hemoglobin 10.8 g/dL Hematocrit 31.4 % Mean Corpuscular Volume 94.0 fL Mean Corpuscular Hemoglobin 32.3 pg Mean Corpuscular Hemoglobin Concent 34.4 g/dl Platelet Count 272 K/uL Mean Platelet Volume 9.2 fL Neutrophils (%) (Auto) 83.1 % Lymphocytes (%) (Auto) 6.3 % Monocytes (%) (Auto) 8.5 % Eosinophils (%) (Auto) 1.5 % Basophils (%) (Auto) 0.3 % Neutrophils # (Auto) 8.92 K/uL Lymphocytes # (Auto) 0.67 K/uL Monocytes # (Auto) 0.91 K/uL Eosinophils # (Auto) 0.16 K/uL Basophils # (Auto) 0.03 K/uL RDW Standard Deviation 44.2 fL RDW Coefficient of Variation 12.8 % Immature Granulocyte % (Auto) 0.3 % Immature Granulocyte # (Auto) 0.03 K/uL Total Bilirubin 0.4 mg/dl Direct Bilirubin 0.1 mg/dl Aspartate Amino Transf (AST/SGOT) 13 U/L Alanine Aminotransferase (ALT/SGPT) 16 U/L Alkaline Phosphatase 56 U/L Total Protein 6.1 gm/dl Albumin 2.9 gm/dl Lipase 94 U/L Impression Assessment and Plan 51 yo s/p EUA, LAVH, BL salpingectomy, cystoscopy on 09/28/17 Now with fever, decreased apatite, diarrhea CT of abdomen/ pelvis suggesting cuff cellulitis No s/s of bowel perforation or abscess Plan: Admit for IV AB Monitor closely All questions were answered VTE Prophylaxis VTE Risk Assessment Done? Y/N: Yes Risk Level: Moderate
[2017-10-06] VITALS (11 sets, daily range): BP systolic 89–118; BP diastolic 52–73; PULSE 69–84; TEMP 36.8–38; O2SAT 98–100; Ht 162.6 cm; Wt 54.4 kg
[2017-10-06] MEDS: LACTATED RINGER'S 1000ML 1,000 ML IV SCH ×3 (01:41→23:52)
[2017-10-06 02:35] LABS: INFLUENZA A PCR Neg for Influ A (NEG); INFLUENZA B PCR Neg for Influ B (NEG)
[2017-10-06] MEDS: METRONIDAZOLE / NSS 500 MG in PREMIXED NSS 100 ML IV SCH ×2 (07:48→15:31)
[2017-10-06 08:59] LABS: BASO % 0.3 %; BASO ABS # 0.03 K/uL (0-0.2); EOS % 1.6 %; EOS ABS # 0.19 K/uL (0-0.5); HEMATOCRIT 29.4 % (37-47); HEMOGLOBIN 9.9 g/dL (12.0-16.0); IG# 0.02 K/uL (0.00-0.02); LYMPH % 8.3 %; LYMPH ABS # 0.96 K/uL (1.2-3.4); MEAN CELL VOLUME 93.6 fL (80-100); MEAN CORPUSCULAR HEMOGLOBIN 31.5 pg (25-34); MEAN CORPUSCULAR HGB CONC 33.7 g/dl (32-36); MEAN PLATELET VOLUME 8.8 fL (7.4-10.4); MONO % 8.8 %; MONO ABS # 1.01 K/uL (0.11-0.59); NEUT % 80.8 %; NEUT ABS # 9.32 K/uL (1.4-6.5); PLATELET COUNT 238 K/uL (130-400); RED CELL DISTRIBUTION WIDTH CV 12.7 % (11.5-14.5); RED CELL DISTRIBUTION WIDTH SD 43.4 fL (36.4-46.3); WHITE BLOOD COUNT 11.53 K/uL (4.8-10.8)
[2017-10-06] MEDS ORDERED: PIPERACILL/TAZOBAC CONSULT ACTIVE PRN (12:30)
[2017-10-06] MEDS ORDERED: PIPERACILL/TAZOBAC IV 3.375 GM in DEXTROSE 5% 100ML 100 ML IV ONE (12:45)
--- NOTE | 2017-10-06 12:55 | Progress Note ---
Progress Note Date of Service Oct 06, 2017. Progress Note INSPECTOR RETURNED MATERIALS Note S; Pt feeling much better . No SOB, chills or fever. Tolerating PO food and Meds. No diarrhea On antibx since admission Flagyl Day#1 O; VSS. afebrile Lung; CTA bilat. No W/C/R Ht; S1S2 R/R/r Abd; Nt ND.+Bs a/p s/p LAVD on 09/28/17 Readmitted for vaginal cuff cellulitis post op readmission Day #1 On antibx Zosyn and Flagyl Afebrile since admission continue antibx tx blood culx pending
[2017-10-06] MEDS ORDERED: INFLUENZA VIRUS QUAD VACCINE 0.5 ML SYR IM. ONE (13:00)
[2017-10-06] MEDS ORDERED: INFLUENZA ADMINISTRATION CHARGE ONE (13:00)
[2017-10-06] MEDS: PIPERACILL/TAZOBAC IV 3.375 GM in DEXTROSE 5% 100ML 100 ML IV SCH (17:37)
[2017-10-06] MEDS ORDERED: ONDANSETRON INJ 2 MG/ML 2 ML VIAL IV PRN (23:45)
[2017-10-06] MEDS ORDERED: NURSING VERBAL MED ORDER ONE (23:45)
[2017-10-06] MEDS ORDERED: ONDANSETRON INJ 2 MG/ML 2 ML VIAL ONE (23:46)
[2017-10-07] MEDS: METRONIDAZOLE / NSS 500 MG in PREMIXED NSS 100 ML IV SCH ×2 (00:33→07:32)
[2017-10-07] MEDS: PIPERACILL/TAZOBAC IV 3.375 GM in DEXTROSE 5% 100ML 100 ML IV SCH ×2 (02:07→09:32)
[2017-10-07] MEDS: METOCLOPRAMIDE HCL INJ 5 MG/ML 2 ML VIAL IV PRN ×2 (02:08→09:32)
[2017-10-07 05:05] VITALS: BP 94/60; PULSE 80; TEMP 37.2; O2SAT 98
[2017-10-07 07:45] VITALS: BP 107/67; PULSE 76; TEMP 37.2; O2SAT 97
[2017-10-07] MEDS: LACTATED RINGER'S 1000ML 1,000 ML IV SCH (09:32)
[2017-10-07 11:03] LABS: BASO % 0.2 %; BASO ABS # 0.02 K/uL (0-0.2); EOS % 2.2 %; EOS ABS # 0.24 K/uL (0-0.5); HEMATOCRIT 29.6 % (37-47); IG# 0.02 K/uL (0.00-0.02); LYMPH % 7.8 %; LYMPH ABS # 0.87 K/uL (1.2-3.4); MEAN CELL VOLUME 92.8 fL (80-100); MEAN CORPUSCULAR HEMOGLOBIN 31.3 pg (25-34); MEAN CORPUSCULAR HGB CONC 33.8 g/dl (32-36); MEAN PLATELET VOLUME 8.3 fL (7.4-10.4); MONO % 7.6 %; MONO ABS # 0.85 K/uL (0.11-0.59); NEUT ABS # 9.13 K/uL (1.4-6.5); PLATELET COUNT 269 K/uL (130-400); RED CELL DISTRIBUTION WIDTH CV 12.3 % (11.5-14.5); RED CELL DISTRIBUTION WIDTH SD 42.2 fL (36.4-46.3); WHITE BLOOD COUNT 11.13 K/uL (4.8-10.8)
--- NOTE | 2017-10-07 11:08 | OB/GYN Progress Note ---
CHARGE MANAGER Progress Note Date of Service: Oct 07, 2017. Patient is seen and examined I was told by nursing team that she has been asking to go home She feels better, likes to be discharged today No more fever/ chills/ lower abdominal pain No VB Diarrhea stopped She had formed stools yesterday once, none today She has been nauseous but able to eat some food, regular but not much She states she does not have much apatite She has been afebrile since 1 pm yesterday ( was 38 C) Her is concerned that she has not been eating much. She feels full after eating small amount of food. He is asking anything wrong with her stomach and bowels She states she eats 80% of her tray I talked to radiologist about her CT scan He states there is some edema/ inflammation on small bowel flores in pelvis, this may explain her symptoms He recommended repeat CT with IV and PO contrast if she does not feel better sometime tonight or tomorrow I told her and abut this She does not like to take PO contrast She likes to be discharged after her IV AB finishes this afternoon I recommended to stay and continue with IV AB's if she has fever and repeat CT scan tonight fi she does not feel better and can not eat today She agreed to stay if she had fever or can not eat otherwise she likes to be discharged this afternoon She states " I will call right away if have fever at home" Date Time Temp Pulse Resp B/P (MAP) Pulse Ox O2 Delivery O2 Flow Rate FiO2 10/07/17 07:45 37.2 76 16 107/67 (80) 97 Room Air 10/07/17 07:45 97 Room Air 10/07/17 05:05 37.2 80 16 94/60 (71) 98 Room Air 10/06/17 23:56 37.2 10/06/17 23:30 100 Room Air 10/06/17 23:30 37.5 84 18 118/73 (88) 100 Room Air 10/06/17 19:50 37.4 75 16 115/73 (87) 100 Room Air 10/06/17 16:25 37.4 10/06/17 15:35 37.7 69 16 102/63 (76) 99 Room Air 10/06/17 15:35 99 Room Air 10/06/17 14:00 37.8 10/06/17 13:10 38.0 10/06/17 11:50 37.2 78 18 101/65 (77) 100 Room Air Test 09/25/17 08:46 09/28/17 06:29 09/29/17 06:31 09/29/17 13:25 Prothrombin Time 10.5 Prothrombin Time INR 1.0 PTT 27.8 Partial Thromboplastin Ratio 1.1 Urine Color YELLOW YELLOW Urine Appearance CLEAR CLEAR Urine pH 6.0 7.0 Urine Specific [place] 1.016 1.014 Urine Protein NEG NEG Urine Glucose (UA) NEG NEG Urine Ketones NEG NEG Urine Occult Blood NEG 2+ H Urine Nitrite NEG NEG Urine Bilirubin NEG NEG Urine Urobilinogen NEG NEG Urine Leukocyte Esterase TRACE H TRACE H Urine WBC (Auto) 1-5 1-5 Urine RBC (Auto) 0-4 >30 H Urine Hyaline Casts (Auto) 0 1-5 Urine Epithelial Cells (Auto) >30 H >30 H Urine Bacteria (Auto) 1+ H NEG Sodium Level 137 139 Potassium Level 4.2 3.7 Chloride Level 104 110 H Carbon Dioxide Level 28 26 Anion Gap 4.0 3.0 Blood Urea Nitrogen 10 5 L Creatinine 0.76 0.51 L Est Creatinine Clear Calc Drug Dose 75.2 112.1 Estimated GFR () 106.8 130.9 Estimated GFR (Non- 92.1 112.9 BUN/Creatinine Ratio 13.2 10.1 Random Glucose 82 87 Calcium Level 8.7 6.9 L POC Urine Test NEG Test 10/05/17 21:05 10/05/17 21:11 10/06/17 01:07 10/06/17 08:37 Urine Color YELLOW Urine Appearance CLEAR Urine pH 8.0 H Urine Specific Sams[place] 1.018 Urine Protein NEG Urine Glucose (UA) NEG Urine Ketones NEG Urine Occult Blood 2+ H Urine Nitrite NEG Urine Bilirubin NEG Urine Urobilinogen NEG Urine Leukocyte Esterase MODERATE H Urine WBC (Auto) 10-30 H Urine RBC (Auto) 5-10 H Urine Hyaline Casts (Auto) 1-5 Urine Epithelial Cells (Auto) >30 H Urine Bacteria (Auto) NEG White Blood Count 10.72 11.53 H Red Blood Count 3.34 L 3.14 L Hemoglobin 10.8 L 9.9 L Hematocrit 31.4 L 29.4 L Mean Corpuscular Volume 94.0 93.6 Mean Corpuscular Hemoglobin 32.3 31.5 Mean Corpuscular Hemoglobin Concent 34.4 33.7 Platelet Count 272 238 Mean Platelet Volume 9.2 8.8 Neutrophils (%) (Auto) 83.1 80.8 Lymphocytes (%) (Auto) 6.3 8.3 Monocytes (%) (Auto) 8.5 8.8 Eosinophils (%) (Auto) 1.5 1.6 Basophils (%) (Auto) 0.3 0.3 Neutrophils # (Auto) 8.92 H 9.32 H Lymphocytes # (Auto) 0.67 L 0.96 L Monocytes # (Auto) 0.91 H 1.01 H Eosinophils # (Auto) 0.16 0.19 Basophils # (Auto) 0.03 0.03 RDW Standard Deviation 44.2 43.4 RDW Coefficient of Variation 12.8 12.7 Immature Granulocyte % (Auto) 0.3 0.2 Immature Granulocyte # (Auto) 0.03 H 0.02 Total Bilirubin 0.4 Direct Bilirubin 0.1 Aspartate Amino Transferase (AST) 13 L Alanine Aminotransferase (ALT) 16 Alkaline Phosphatase 56 Total Protein 6.1 L Albumin 2.9 L Lipase 94 Influenza Type A (RT-PCR) Neg for Influ A Influenza Type B (RT-PCR) Neg for Influ B Test 10/07/17 10:48 White Blood Count 11.13 H Red Blood Count 3.19 L Hemoglobin 10.0 L Hematocrit 29.6 L Mean Corpuscular Volume 92.8 Mean Corpuscular Hemoglobin 31.3 Mean Corpuscular Hemoglobin Concent 33.8 Platelet Count 269 Mean Platelet Volume 8.3 Neutrophils (%) (Auto) 82.0 Lymphocytes (%) (Auto) 7.8 Monocytes (%) (Auto) 7.6 Eosinophils (%) (Auto) 2.2 Basophils (%) (Auto) 0.2 Neutrophils # (Auto) 9.13 H Lymphocytes # (Auto) 0.87 L Monocytes # (Auto) 0.85 H Eosinophils # (Auto) 0.24 Basophils # (Auto) 0.02 RDW Standard Deviation 42.2 RDW Coefficient of Variation 12.3 Immature Granulocyte % (Auto) 0.2 Immature Granulocyte # (Auto) 0.02 Last 24 Hours PE: Alert orientedx3, NAD CVS: S1S2 RRR Lungs; CTAB Abd:soft, NT, ND, BS+ good, no rebound nor tenderness, she is flat Pad: scan pink d.c Ext: NT, no edema AP: 51 yo s/p LAVH, BL salpingectomy, Cystoscopy on 09/28, admitted with fever/ lower abdominal pain, diarrhea , cuff cellulitus VSS Afebrile since yesterday afternoon Blood/ urine cx negative, C diff, Influenza cx negative Discussed about findings and recommended to stay for IV AB for [address] scan if GI symptoms persist She likes to be discharged this afternoon All questions were answered Instructions were given when to call
[2017-10-07] MEDS ORDERED: METR-162 PO (11:11)
[2017-10-07] MEDS ORDERED: ONDA8TAB62 SL (11:11)
--- NOTE | 2017-10-07 11:12 | Discharge Instructions ---
Discharge Instructions Date of Service Oct 07, 2017. Admission Reason for Admission: Postoperative Fever Discharge Discharge Diagnosis / Problem: Vaginal cuff cellulitis Discharge Goals Goal(s): Routine recovery after surgery Activity Recommendations Activity Limitations: as noted below SPECIAL CARE INSTRUCTIONS: * Check temperature twice daily for one week. Report any elevation over 100.4 degrees Fahrenheit (38.0 degrees Celsius). * Call office in the next few days for return appointment. * You may experience some vaginal spotting and/or bleeding, this is normal for one or two weeks and should not alarm you. FOLLOW UP VISIT: Keep any scheduled doctor appointments. . Current Hospital Diet Patient's current hospital diet: Regular Diet Discharge Diet Recommended Diet: Regular Diet Pending Studies Studies pending at discharge: no Medical Emergencies . Who to Call and When: Medical Emergencies: If at any time you feel your situation is an emergency, please call 911 immediately. . Non-Emergent Contact Non-Emergency issues call your: Surgeon Call Non-Emergent contact if: you have a fever, temperature is above 100.5, your pain is not controlled, your pain is worsening, your pain is unusual for you, wound has increased drainage, wound has increased redness, wound has increased pain, you have any medication questions . . "Provider Documentation" section prepared by Cade Sloan. . VTE Core Measure Inpt VTE Proph given/why not?: Treatment not indicated
[2017-10-07 13:10] VITALS: BP 109/66; PULSE 84; TEMP 37.1; O2SAT 100
[2017-10-07] MEDS ORDERED: METO1TAB55 PO (13:24)
[2017-10-07 13:35] VITALS: BP 109/66; PULSE 84; TEMP 37.1; O2SAT 100
--- NOTE | 2017-10-08 14:29 | DISCHARGE SUMMARY ---
DETAILS OF ADMISSION: The patient is a 51-year-old G1, P0-1-3 female who is status post exam under anesthesia, laparoscopic assisted total vaginal hysterectomy, bilateral salpingectomy and cystoscopy on September 28 for enlarged uterus with multiple fibroids. She was discharged on 09/29/2017. I called her for the following day, she was doing well, her pain was under control with Motrin only, her temperature has been normal, she was taking it twice a day. Since she was feeling well, she went to work on October 04 at [employer] and then when she came back she felt sick. Her temperature was normal then. She was not feeling well with fever and diarrhea on October 05. It was 38.5 at home. She called in the evening and I recommended her to come in to the ER. Upon presenting to the ER, she was seen by ER physician. Her temperature was 37.4 and then repeat 38.3 C. The blood work and CT of abdomen and pelvis were completed. The CT showed inflammation, edema and cuff and adnexa. No signs of bowel perforation. She was having more lower abdominal pain. Her physical exam and the x-ray findings suggesting cuff cellulitis. She was admitted for IV antibiotic treatment. Urine, blood cultures were sent. Influenza and C. diff were collected. She was put on IV Zosyn and Flagyl starting from October 05 continued to October 07. Her blood, influenza cultures and and C diff were negative. Urine cx was pending for final. She had been afebrile for over 24 hours. She wanted to go home on October 07. She complained of nausea, not able to eat much. I talked to the radiologist who recommended to repeat CT scan with a p.o. and IV contrast if GI symptoms persisted. The patient did not want to do more studies and she tolerated her lunch. She wanted to be discharged on October 07. She has been afebrile. She was placed on oral Flagyl and instructions were given to call, prescriptions were written for pain, Flagyl and for nausea and all questions were answered. RUSS
== END 2017-10-07 13:55 | disposition home or self-care (01) | DRG 863 ==
LOC: C.EDB 20:17 → C.MS4N 23:36 → ENRESERV 10-06 00:14
PROVIDERS: ADMIT Obstetrics & Gynecology; ATTEND Obstetrics & Gynecology
DX: T81.4XXA Infection following a procedure, initial encounter (principal); L03.90 Cellulitis, unspecified; Z90.710 Acquired absence of both cervix and uterus; R10.30 Lower abdominal pain, unspecified; R19.7 Diarrhea, unspecified

== ENCOUNTER 2018-05-28 19:28 | Emergency (ER) | payer BC, OTHER ==
[~2018-05-28] VITALS: Ht 162.6 cm; Wt 55.1 kg
[~2018-05-28 19:28] MED LIST changes: -AMOX1TAB43 PO; -METO-157 PO; -ONDA4TAB10 SL
[2018-05-28 19:30] VITALS: Ht 162.6 cm; Wt 55.1 kg
[2018-05-28] MEDS ORDERED: SODIUM CHLORIDE 0.9% 1000ML 1,000 ML IV STA (19:50)
[2018-05-28] MEDS ORDERED: ACETAMINOPHEN 500 MG TAB PO STA (19:50)
--- NOTE | 2018-05-28 20:19 | EMERGENCY ROOM VISIT NOTE ---
History First contact with patient: 19:34 Chief Complaint: FEVER Stated Complaint: HIGH FEVER History of Present Illness The patient is a 52 year old female who presents to the Emergency Room with complaints of a fever. Patient states that she has had a fever for the past 3 days. Her fever seems to worsen throughout the day. She has taken ibuprofen and Aleve without relief of her fever. Her last dose of ibuprofen she reports general malaise and body aches. 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 She rates her overall discomfort an 8/10. She did travel to [facility] in March of this year and [facility] in February. She does report that she spends time outside hiking and mountain biking. She also has atrial behind her house where she walks her dog. She has not noticed any tick bites. She denies nausea/vomiting, diarrhea, sore throat, headache or neck pain. She denies abdominal pain, cough, chest pain or shortness of breath. She is fully vaccinated and typically very healthy. Review of Systems A complete 10 point review of systems was reviewed with the patient with pertinent positives and negatives as per history of present illness. All else were negative. Past Medical/Surgical History Medical Problems: (1) Fibroid uterus (2) Postoperative fever Surgical Problems: (1) S/P hysterectomy Social History Smoking Status: Never Smoker Drug Use: none Marital Status: Occupation Status: employed Current/Historical Medications Scheduled Sulfa/Trimethoprim (Bactrim Ds 800MG/160MG), 1 TAB PO BID Scheduled PRN Ibuprofen (Ibuprofen), 600 MG PO Q6H PRN for Pain,MELVIN,cramping,or fever Triamcinolone Acet (Triamcinolone Acetonide), 1 APPLN TOP BID PRN for Affected Skin Folds Physical Exam Vital Signs Date Time Temp Pulse Resp B/P (MAP) Pulse Ox O2 Delivery O2 Flow Rate FiO2 05/28/18 22:42 37.5 72 16 120/72 98 Room Air 05/28/18 21:06 38.2 83 16 116/63 98 Room Air 05/28/18 20:42 92 05/28/18 19:30 39.5 118 20 111/69 98 Room Air Physical Exam VITALS: Vitals are noted on the nurse's note and reviewed by myself. Vital signs stable. GENERAL: This is a 52-year-old female, in no acute distress, nondiaphoretic, well-developed well-nourished. SKIN: The skin was without rashes. EARS: External auditory canals clear, tympanic membranes pearly contreras without erythema or effusion bilaterally. EYES: Pupils equal round and reactive to light and accommodation. NOSE: Patent, turbinates without inflammation or discharge. MOUTH: Mucous membranes moist. Tonsils are not enlarged. Pharynx without erythema or exudate. NECK: Supple without nuchal rigidity. No lymphadenopathy. HEART: Regular rate and rhythm. Grade 2 systolic murmur. LUNGS: Clear to auscultation bilaterally without wheezes, rales or rhonchi. ABDOMEN: Positive bowel sounds x 4. Soft, nontender to palpation. NEURO: Patient was alert and oriented to person place and time. Medical Decision & Procedures Laboratory Results 05/28/18 20:04 Red Blood Count 4.21, Mean Corpuscular Volume 94.3, Mean Corpuscular Hemoglobin 31.6, Mean Corpuscular Hemoglobin Concent 33.5, Mean Platelet Volume 9.9, Neutrophils (%) (Auto) 81.9, Lymphocytes (%) (Auto) 7.5, Monocytes (%) (Auto) 10.1, Eosinophils (%) (Auto) 0.1, Basophils (%) (Auto) 0.2, Neutrophils # (Auto ) 7.35, Lymphocytes # (Auto) 0.67, Monocytes # (Auto) 0.91, Eosinophils # (Auto ) 0.01, Basophils # (Auto) 0.02 05/28/18 20:04 Test 05/28/18 20:04 05/28/18 21:10 White Blood Count 8.98 K/uL (4.8-10.8) Red Blood Count 4.21 M/uL (4.2-5.4) Hemoglobin 13.3 g/dL (12.0-16.0) Hematocrit 39.7 % (37-47) Mean Corpuscular Volume 94.3 fL (80-100) Mean Corpuscular Hemoglobin 31.6 pg (25-34) Mean Corpuscular Hemoglobin Concent 33.5 g/dl (32-36) Platelet Count 181 K/uL (130-400) Mean Platelet Volume 9.9 fL (7.4-10.4) Neutrophils (%) (Auto) 81.9 % Lymphocytes (%) (Auto) 7.5 % Monocytes (%) (Auto) 10.1 % Eosinophils (%) (Auto) 0.1 % Basophils (%) (Auto) 0.2 % Neutrophils # (Auto) 7.35 K/uL (1.4-6.5) Lymphocytes # (Auto) 0.67 K/uL (1.2-3.4) Monocytes # (Auto) 0.91 K/uL (0.11-0.59) Eosinophils # (Auto) 0.01 K/uL (0-0.5) Basophils # (Auto) 0.02 K/uL (0-0.2) RDW Standard Deviation 44.3 fL (36.4-46.3) RDW Coefficient of Variation 12.9 % (11.5-14.5) Immature Granulocyte % (Auto) 0.2 % Immature Granulocyte # (Auto) 0.02 K/uL (0.00-0.02) Anion Gap 8.0 mmol/L (3-11) Est Creatinine Clear Calc Drug Dose 74.6 ml/min Estimated GFR () 102.7 Estimated GFR (Non- 88.6 BUN/Creatinine Ratio 11.2 (10-20) Calcium Level 8.2 mg/dl (8.5-10.1) Total Bilirubin 0.3 mg/dl (0.2-1) Aspartate Amino Transf (AST/SGOT) 24 U/L (15-37) Alanine Aminotransferase (ALT/SGPT) 27 U/L (12-78) Alkaline Phosphatase 68 U/L (45-117) Troponin I < 0.015 ng/ml (0-0.045) Total Protein 6.8 gm/dl (6.4-8.2) Albumin 3.2 gm/dl (3.4-5.0) Globulin 3.6 gm/dl (2.5-4.0) Albumin/Globulin Ratio 0.9 (0.9-2) Lyme Disease IgG Antibody NEG (NEG) Lyme Disease IgM Antibody NEG (NEG) Monoscreen NEG (NEG) Urine Color YELLOW Urine Appearance CLEAR (CLEAR) Urine pH 6.5 (4.5-7.5) Urine Specific [place] 1.005 (1.000-1.030) Urine Protein NEG (NEG) Urine Glucose (UA) NEG (NEG) Urine Ketones NEG (NEG) Urine Occult Blood NEG (NEG) Urine Nitrite POS (NEG) Urine Bilirubin NEG (NEG) Urine Urobilinogen NEG (NEG) Urine Leukocyte Esterase SMALL (NEG) Urine WBC (Auto) 5-10 /hpf (0-5) Urine RBC (Auto) 0-4 /hpf (0-4) Urine Hyaline Casts (Auto) 0 /lpf (0-5) Urine Epithelial Cells (Auto) 10-20 /lpf (0-5) Urine Bacteria (Auto) 4+ (NEG) Medications Administered Medications (Trade) Dose Ordered Sig/Ingrid Route Start Time Stop Time Status Last Admin Dose Admin Sodium Chloride 1,000 ml @ 999 mls/hr Q1H1M STAT IV 05/28/18 19:50 05/28/18 20:50 DC 05/28/18 20:09 999 MLS/HR Acetaminophen (Tylenol Tab) 1,000 mg NOW STAT PO 05/28/18 19:50 05/28/18 19:52 DC 05/28/18 20:09 1,000 MG Ceftriaxone Sodium (Rocephin Inj) 1 gm NOW STAT IV 05/28/18 21:49 05/28/18 21:50 DC 05/28/18 21:58 1 GM Trimethoprim/ Sulfamethoxazole (Sulfameth/ Trimeth Ds 800/ 160MG Home Pack) 1 homepack UD ONCE PO 05/28/18 22:00 05/28/18 22:01 DC 05/28/18 22:00 1 HOMEPACK Medical Decision Differential diagnosis includes viral illness, Lyme disease, mononucleosis, pneumonia, UTI, sepsis, among others. The patient is a 52-year-old female who presents today complaining of high fevers. Initial temperature here was 39.5 Celsius. This did improve after IV fluids and Tylenol. She was initially tachycardic and this also improved significantly with IV fluids. Labs revealed no leukocytosis, anemia or concerning electrolyte abnormality. Urinalysis was suggestive of infection. Patient was given a dose of Rocephin and will be placed on Bactrim. Urine culture is pending. She was advised to alternate Tylenol and ibuprofen for pain and fever relief. She was instructed to follow-up with her primary care provider for recheck. Based on the patient's presentation and work up, I feel the patient is stable for outpatient treatment. The patient was educated to return to the emergency department for any worsening of their current condition or new/concerning symptoms. She will follow up with her PCP. Medication Reconcilliation Current Medication List: was personally reviewed by me Blood Pressure Screening Patient's blood pressure: Normal blood pressure Impression Primary Impression: Urinary tract infection Departure Information Dispostion Home / Self-Care Condition GOOD Prescriptions Sulfa/Trimethoprim (Bactrim Ds 800MG/160MG) Tab 1 TAB PO BID for 6 Days, #12 TAB Prov: Kaila Chandler .JACKELYN 05/28/18 Referrals Canan. Sloan MD (PCP) Patient Instructions My [facility] Additional Instructions You have been treated in the Emergency Department for a Urinary Tract Infection (UTI). You have been prescribed Bactrim to be taken twice daily for a total of 7 days. This is an antibiotic. All antibiotics have the potential to cause diarrhea. Stop this medication and contact a medical provider if you were to develop any significant adverse side effects including: wheezing, shortness of breath, passing out, vomiting, or a diffuse rash. Always take antibiotics as directed and COMPLETE the ENTIRE course regardless of the improvement of your symptoms. Alternate Tylenol and ibuprofen as discussed for fevers/pain. Drink plenty of water and stay well hydrated. As with any trip to the Emergency Department, you should follow-up with your Primary Care Provider from today's visit. Return to the emergency department if your symptoms persist despite treatment plan outlined above or if the following symptoms occur: increased fevers, chills , low back pain, nausea/vomiting, or blood in your urine. Problem Qualifiers Primary Impression: Urinary tract infection Urinary tract infection type: site unspecified Hematuria presence: without hematuria Qualified Codes: N39.0 - Urinary tract infection, site not specified
[2018-05-28 20:21] LABS: BASO % 0.2 %; BASO ABS # 0.02 K/uL (0-0.2); EOS % 0.1 %; EOS ABS # 0.01 K/uL (0-0.5); HEMATOCRIT 39.7 % (37-47); HEMOGLOBIN 13.3 g/dL (12.0-16.0); IG# 0.02 K/uL (0.00-0.02); LYMPH % 7.5 %; LYMPH ABS # 0.67 K/uL (1.2-3.4); MEAN CELL VOLUME 94.3 fL (80-100); MEAN CORPUSCULAR HEMOGLOBIN 31.6 pg (25-34); MEAN CORPUSCULAR HGB CONC 33.5 g/dl (32-36); MEAN PLATELET VOLUME 9.9 fL (7.4-10.4); MONO % 10.1 %; MONO ABS # 0.91 K/uL (0.11-0.59); NEUT % 81.9 %; NEUT ABS # 7.35 K/uL (1.4-6.5); PLATELET COUNT 181 K/uL (130-400); RED CELL DISTRIBUTION WIDTH CV 12.9 % (11.5-14.5); RED CELL DISTRIBUTION WIDTH SD 44.3 fL (36.4-46.3); WHITE BLOOD COUNT 8.98 K/uL (4.8-10.8)
[2018-05-28 20:44] LABS: ALBUMIN 3.2 gm/dl (3.4-5.0); ALKALINE PHOSPHATASE 68 U/L (45-117); ALT/SGPT 27 U/L (12-78); AST/SGOT 24 U/L (15-37); BLOOD UREA NITROGEN 9 mg/dl (7-18); CALCIUM 8.2 mg/dl (8.5-10.1); CARBON DIOXIDE 24 mmol/L (21-32); CREATININE 0.78 mg/dl (0.60-1.20); GLUCOSE 138 mg/dl (70-99); POTASSIUM 3.6 mmol/L (3.5-5.1); SODIUM 136 mmol/L (136-145); TOTAL PROTEIN 6.8 gm/dl (6.4-8.2)
--- NOTE | 2018-05-28 20:44 | DIAGNOSTIC IMAGING REPORT ---
CHEST ONE VIEW PORTABLE HISTORY: fever COMPARISON: Chest 09/29/2017. FINDINGS: The lungs are clear. Cardiac silhouette is normal in size. No pleural effusions. No pneumothorax. IMPRESSION: No acute process. Electronically signed by: Odell Oconnor M.D. 05/28/2018 8:42 PM Dictated Date/Time: 05/28/2018 8:40 PM
[2018-05-28 21:15] LABS: MONOSPOT NEG (NEG)
[2018-05-28] MEDS ORDERED: CEFTRIAXONE SOD INJ 1 GM ADDVIAL IV STA (21:49)
[2018-05-28] MEDS ORDERED: SEPTRA DS HOME PACK 1 EA VIAL PO ONE (22:00)
[2018-05-28] MEDS ORDERED: SULF800T23 PO (22:07)
[2018-05-28 22:42] VITALS: BP 120/72; PULSE 72; TEMP 37.5; O2SAT 98
--- NOTE | 2018-05-30 12:47 | Pharmacy Progress Note ---
ED Pharmacist Culture FollowUp Date of Service: May 30, 2018. Patient was sent home with a prescription for Bactrim DS BID x 6 days, which should cover the E. coli growing from the patient's urine culture.
== END 2018-05-28 22:43 | disposition home or self-care (01) ==
LOC: C.EDB 19:29
DX: N39.0 Urinary tract infection, site not specified (principal); Z90.710 Acquired absence of both cervix and uterus

== ENCOUNTER 2021-09-27 10:01 | Inpatient (IN) ==
--- NOTE | 2021-09-27 10:20 | Emergency Department Note ---
Impression & Plan Shortness of breath, Hypoxia ED Provider Note INFORMANT: Patient ED PROVIDER(S): Rome Barry MD CHIEF COMPLAINT: Shortness of breath PLAN: Disposition: Admitted Condition: Good Outpatient prescription management: none Referral: None MEDICAL DECISION MAKING: Patient presented to the emergency department because of shortness of breath and also chest pain. She has been dealing with pulmonary issues and was pending a work-up however her symptoms acutely worsened. The patient did describe some flulike symptoms that have developed as well. She had a work-up initiated. She was doing well on supplemental oxygen. She had IV fluids given. The patient had a negative chest x-ray. ECG showed a tachycardia without obvious ischemic change. The patient was found to have a fever. She was treated with Tylenol. Blood cultures, lactate performed. Additional fluids given. Broad-spectrum antibiotics with cefepime and vancomycin given. Patient's troponin was negat bhavana. D-dimer was significantly elevated. CT PE study was performed and was negative. I did give the patient additional fluids as her lactate was elevated. Patient was frequently reassessed. Doing well. Updated. I did discuss the patient's presentation initially and then after results with her [facility] java tech, Dr. Rivera at [phone]. He agreed with the work-up and admission. I did discuss the case with Jyoti Flores PA-C of the [facility] hospitalist service. The patient was evaluated in the ER admitted for further management Triage Nursing notes reviewed and agree them. Vital Signs: reviewed and remarkable for tachycardia Differential diagnosis: Reactive airway disease, pneumonia, pneumothorax, COPD, CHF, infections, cardiac ischemia, pulmonary embolism, musculoskeletal, gastrointestinal, as well as other pathologies. Diagnostics interpreted by me: ECG: Twelve-lead ECG reveals sinus tachycardia at [address] abnormality. No ST elevation or depression. Normal axis and QRS. Cardiac Monitoring: Cardiac monitoring ordered by me: The patient was placed on continuous cardiac monitoring and observed. It revealed a sinus tachycardia at 131 beats per minute without ectopy or evidence of dysrhythmia. Imaging studies: Chest x-ray. Findings: A chest x-ray was performed and revealed no pneumothorax, effusion, infiltrate, pulmonary edema, free air under the diaphragm, or wide mediastinum. Impression: No acute disease. CT PE study negative for acute pathology. I refer you to the EMR for further details. HPI: The patient is a 55 year old female who presents to the Emergency Room with complaints of shortness of breath. This started today and is currently improved. The patient has had an ongoing problem with dyspnea on exertion and chronic oxygen use. She is being worked up by Dr. Rivera at [facility]. She is pending a lung biopsy tomorrow. She has been weaning off of chronic steroid use. She has noted feeling myalgias, fevers, and chills all week. That has seemed to escalate. She did note some chest discomfort and feeling shaky. She did have a negative Covid test done yesterday. Patient's O2 saturation was 70% on her 5 L. EMS placed her on 6 L and she improved. No other medications given. Pt denies LOC, headache, diaphoresis, visual changes, neck pain, nausea, vomiting, abdominal pain, back pain, melena, hematochezia, urinary symptoms, numbness, weakness, lymphadenopathy, rash, or other complaints. ROS: See above HPI for pertinent positives & negatives. A total of 10 systems reviewed and were otherwise negative. PAST MEDICAL HISTORY:See Below , chronic dyspnea PAST SURGICAL HISTORY:See Below, FAMILY HISTORY:See Below SOCIAL HISTORY:See Below, HOME MEDICATIONS:See Below ALLERGIES:See Below VITALS:See Below PHYSICAL EXAMINATION: GENERAL: Awake, alert, anxious-appearing, in no distress HENT: Normocephalic, atraumatic. Oropharynx unremarkable. EYES: Normal conjunctiva. Sclera non-icteric. NECK: Inspection normal. Non-tender. Supple. No nuchal rigidity. FROM. No mas ses. RESPIRATORY: Clear to auscultation. No wheezes. No rales. Normal respiratory effort. CARDIAC: Tachycardic rate. Normal rhythm. No murmurs. No rubs. Extremities warm and well perfused. Pulses equal. No JVD. GI: Soft, non-distended. No tenderness to palpation. No rebound or guarding. No masses. RECTAL: Deferred. MUSCULOSKELETAL: Atraumatic. Chest examination reveals no tenderness. The back is symmetrical on inspection without obvious abnormality. There is no CVA tenderness to palpation. No joint edema. LOWER EXTREMITIES: Calves are equal size bilaterally and non-tender. No edema. No discoloration. NEURO: Normal sensorium. No sensory or motor deficits noted. SKIN: No rash or jaundice noted. CRITICAL CARE:I have personally spent greater than 35 minutes of critical care time in the direct management of this patient. This includes bedside care, interpretation of diagnostic studies, and testing, discussion with consultants, patient, and family members, and other required patient management activities. These minutes are in excess of all separately billable procedures. Rome Barry MD Past Med/Surg History Medical History (Updated 09/27/21 @ 10:20 by Rome Barry MD) Fibroid uterus History of menorrhagia PMR (polymyalgia rheumatica) Surgical History (Updated 08/03/21 @ 09:36 by Michelle Houston) H/O: hysterectomy History of colonoscopy Family History (Updated 08/03/21 @ 09:37 by Michelle Houston) Other Asthma Breast cancer Cancer Diabetes Hypertension Pancreatic cancer Social History Smoking Status: Never smoker Hx Alcohol Use: No Preferred Language: Kiswahili Feels Safe at Home: Yes Allergies Allergies Allergy/AdvReac Type Severity Reaction Status Date / Time amoxicillin AdvReac Severe DIARRHEA Verified 09/27/21 10:44 clavulanic acid AdvReac Severe DIARRHEA Verified 09/27/21 10:44 Home Meds Home Medications Medication Instructions Recorded Confirmed acetaminophen 325 mg tablet 0 mg PO QID 09/27/21 09/27/21 prednisone 5 mg tablet 5 mg PO DAILY 09/27/21 09/27/21 Results & Data (ED) Vital Signs Vital Signs - 24 hr 09/27/21 10:15 09/27/21 10:16 09/27/21 10:26 Temperature 39.6 C H Temperature Source Oral Pulse Rate 114 H Respiratory Rate 24 Blood Pressure 136/89 Blood Pressure Mean 104 Pulse Oximetry 100 100 Oxygen Delivery Method Nasal Cannula Nasal Cannula Nasal Cannula Oxygen Flow Rate 6 6 6 Sepsis Recent Fever Within 48 Hours No Sepsis New/Unexplained Change in Mental Status N/A Sepsis Action Taken by Nursing Physician Notified Pulse Oximetry Post Tiitration 100 09/27/21 12:16 Temperature 38.1 C H Temperature Source Oral Pulse Rate Respiratory Rate Blood Pressure Blood Pressure Mean Pulse Oximetry Oxygen Delivery Method Oxygen Flow Rate Sepsis Recent Fever Within 48 Hours Sepsis New/Unexplained Change in Mental Status Sepsis Action Taken by Nursing Pulse Oximetry Post Tiitration Laboratory Data Result diagrams: 09/27/21 10:15 12/07/21 10:15 Lab Results 09/27/21 09/27/21 09/27/21 Range/Units 10:15 10:15 10:15 WBC 3.85 L (4.8-10.8) K/uL RBC 4.10 L (4.2-5.4) M/uL Hgb 12.1 (12.0-16.0) g/dL Hct 37.3 (37-47) % MCV 91.0 (80-100) fL MCH 29.5 (25-34) pg MCHC 32.4 (32-36) g/dL RDW Std Deviation 45.4 (36.4-46.3) fL RDW Coeff of Mike 13.7 (11.5-14.5) % Plt Count 175 (130-400) K/uL MPV 10.1 (7.4-10.4) fL Immature Gran % (Auto) 0.8 % Neut % (Auto) 66.5 % Lymph % (Auto) 18.7 % [place] % (Auto) 11.9 % Eos % (Auto) 1.3 % Baso % (Auto) 0.8 % Neut # (Auto) 2.56 (1.4-6.5) K/uL Lymph # (Auto) 0.72 L (1.2-3.4) K/uL [place] # (Auto) 0.46 (0.11-0.59) K/uL Eos # (Auto) 0.05 (0-0.5) K/uL Baso # (Auto) 0.03 (0-0.2) K/uL Immature Gran # (Auto) 0.03 H (0.00-0.02) K/uL D-Dimer 1860 H* (0-500) ug/L FEU Sodium 141 (136-145) mmol/L Potassium 3.6 (3.5-5.1) mmol/L Chloride 108 H (98-107) mmol/L Carbon Dioxide 24 (21-32) mmol/L Anion Gap 8.0 (3-11) BUN 7 (7-18) mg/dl Creatinine 0.69 (0.6-1.2) mg/dl Est Cr Clr Drug Dosing 74.9 ml/min Est GFR ( Amer) 115.2 ml/min Est GFR (Non-Af Amer) 99.4 ml/min BUN/Creatinine Ratio 10.7 (10-20) Glucose 100 H (70-99) mg/dl Lactate (0.4-2.0) mmol/L Calcium 8.4 L (8.5-10.1) mg/dl Total Bilirubin 0.3 (0.2-1) mg/dl AST 80 H (15-37) U/L ALT 50 (12-78) Alkaline Phosphatase 108 (45-117) U/L Troponin I < 0.015 (0-0.045) ng/ml NT-Pro-B Natriuret Pep 276 (0-900) pg/ml Total Protein 6.3 L (6.4-8.2) gm/dl Albumin 2.7 L (3.4-5.0) gm/dl Globulin 3.6 (2.5-4.0) gm/dl Albumin/Globulin Ratio 0.8 L (0.9-2) SARS-CoV-2 (PCR) (Negative) Influenza Type A (PCR) (Neg) Influenza Type B (PCR) (Neg) RSV (RT-PCR) (Neg) 09/27/21 09/27/21 Range/Units 10:22 12:18 WBC (4.8-10.8) K/uL RBC (4.2-5.4) M/uL Hgb (12.0-16.0) g/dL Hct (37-47) % MCV (80-100) fL MCH (25-34) pg MCHC (32-36) g/dL RDW Std Deviation (36.4-46.3) fL RDW Coeff of Mike (11.5-14.5) % Plt Count (130-400) K/uL MPV (7.4-10.4) fL Immature Gran % (Auto) % Neut % (Auto) % Lymph % (Auto) % [place] % (Auto) % Eos % (Auto) % Baso % (Auto) % Neut # (Auto) (1.4-6.5) K/uL Lymph # (Auto) (1.2-3.4) K/uL [place] # (Auto) (0.11-0.59) K/uL Eos # (Auto) (0-0.5) K/uL Baso # (Auto) (0-0.2) K/uL Immature Gran # (Auto) (0.00-0.02) K/uL D-Dimer (0-500) ug/L FEU Sodium (136-145) mmol/L Potassium (3.5-5.1) mmol/L Chloride (98-107) mmol/L Carbon Dioxide (21-32) mmol/L Anion Gap (3-11) BUN (7-18) mg/dl Creatinine (0.6-1.2) mg/dl Est Cr Clr Drug Dosing ml/min Est GFR ( Amer) ml/min Est GFR (Non-Af Amer) ml/min BUN/Creatinine Ratio (10-20) Glucose (70-99) mg/dl Lactate 2.7 H* (0.4-2.0) mmol/L Calcium (8.5-10.1) mg/dl Total Bilirubin (0.2-1) mg/dl AST (15-37) U/L ALT (12-78) Alkaline Phosphatase (45-117) U/L Troponin I (0-0.045) ng/ml NT-Pro-B Natriuret Pep (0-900) pg/ml Total Protein (6.4-8.2) gm/dl Albumin (3.4-5.0) gm/dl Globulin (2.5-4.0) gm/dl Albumin/Globulin Ratio (0.9-2) SARS-CoV-2 (PCR) NEGATIVE (Negative) Influenza Type A (PCR) Negative (Neg) Influenza Type B (PCR) Negative (Neg) RSV (RT-PCR) Negative (Neg) Administered Medications Sodium Chloride (Nss 1000ml) 1,000 mls @ 125 mls/hr IV .Q8H STA Stop: 09/27/21 19:15 Last Admin: 09/27/21 13:00 Dose: 125 mls/hr Documented by: [id number] Vancomycin HCl 1,000 mg/ (Sodium Chloride) 520 mls @ 200 mls/hr IV NOW ONE Stop: 09/27/21 13:51 Last Admin: 09/27/21 12:13 Dose: 200 mls/hr Documented by: [id number] Discontinued Medications Acetaminophen (Acetaminophen 500 Mg Tab) 1,000 mg PO NOW STA Stop: 09/27/21 11:03 Last Admin: 09/27/21 11:36 Dose: 1,000 mg Documented by: [id number] Sodium Chloride (Nss 1000ml) 1,000 mls @ 999 mls/hr IV .Q1H1M ONE Stop: 09/27/21 12:16 Last Infusion: 09/27/21 12:45 Dose: 0 mls/hr Documented by: [id number] Admin: 09/27/21 11:44 Dose: 999 mls/hr Documented by: [id number] Cefepime HCl (Maxipime) 2,000 mg in 20 mls @ 5 mls/min IV NOW STA; Protocol Stop: 09/27/21 11:19 Last Admin: 09/27/21 11:36 Dose: 5 mls/min Documented by: [id number] Ioversol (Optiray 320 125ml) 120 ml IV ONCE ONE Stop: 09/27/21 11:31 Last Admin: 09/27/21 11:19 Dose: 120 ml Documented by: [id number] Imaging Data Radiologist's Impression: Chest X-Ray 09/27/21 10:12 XR chest 1V portable CLINICAL HISTORY: Dyspnea TECHNIQUE: Single frontal radiograph of the chest was obtained. Comparison: Comparison is made to chest one view 07/19/2031 FINDINGS: No lines and tubes are seen. The cardiomediastinal silhouette is normal. The lungs are clear. No evidence of pleural effusion or pneumothorax. IMPRESSION: No acute chest disease. ACT 112: Negative or not required by law. Electronically signed by: Ronni Downey M.D. 09/27/2021 10:21 AM Chest CTA 09/27/21 11:02 CT angio chest PE protocol CLINICAL HISTORY: SOB, hypoxia, +dimer COMPARISON STUDY: 07/11/2021 and portable chest from 09/27/2021 CT DOSE: 240.89 mGy.cm TECHNIQUE: CT Angio of the chest was performed.followed by image post process ing with coronal, and sagittal MIP reformats. Contrast Volume: Optiray 320, 120 ml FINDINGS: Vasculature: There is homogeneous perfusion of the pulmonary vasculature bilaterally. No intraluminal filling defects or evidence for pulmonary embolus is seen. Airway: The airway is clear. No endobronchial lesion is identified. Lungs: The lungs are clear of acute alveolar opacities, air bronchograms or pulmonary nodules. Pleura: There is no evidence for pleural effusion. There is no evidence for pneumothorax. Mediastinum: There is no evidence for pathologic adenopathy. The heart size is within normal limits. The thoracic aorta is within normal limits. There is no evidence for pericardial effusion. Upper abdomen:The adrenal glands are normal bilaterally. Osseous structures: There is no acute osseous pathology. Impression: 1. No CTA evidence for pulmonary embolus. 2. No acute chest disease. ACT 112: Negative or not required by law. Electronically signed by: Alex Hernandez M.D. 09/27/2021 11:30 AM Discharge Plan Visit Data Chief Complaint: Chest Pain Stated Complaint: SOB, Chest Pain ED Provider: Rome Barry Discharge Problem: Shortness of breath, Hypoxia Forms Stand Alone Forms: My [facility] Prescriptions Prescriptions: No Action prednisone 5 mg tablet 5 mg PO DAILY RF: 0 acetaminophen 325 mg Tablet 0 mg PO QID RF: 0 Referrals Referrals: Rome Rosado MD [Primary Care Provider] -
--- NOTE | 2021-09-27 10:23 | XRay Report ---
XR chest 1V portable CLINICAL HISTORY: Dyspnea TECHNIQUE: Single frontal radiograph of the chest was obtained. Comparison: Comparison is made to chest one view 07/19/2031 FINDINGS: No lines and tubes are seen. The cardiomediastinal silhouette is normal. The lungs are clear. No evid ence of pleural effusion or pneumothorax. IMPRESSION: No acute chest disease. ACT 112: Negative or not required by law. Electronically signed by: Ronni Downey M.D. 09/27/2021 10:21 AM
[2021-09-27 10:26] LABS: Basophils # (auto) 0.03 K/uL (0-0.2); Basophils % (auto) 0.8 %; Eosinophils # (auto) 0.05 K/uL (0-0.5); Eosinophils % (auto) 1.3 %; Hematocrit (blood only) 37.3 % (37-47); Hemoglobin 12.1 g/dL (12.0-16.0); Immature Granulocytes # (auto) 0.03 K/uL (0.00-0.02); Immature Granulocytes % (auto) 0.8 %; Lymphocytes # (auto) 0.72 K/uL (1.2-3.4); Lymphocytes % (auto) 18.7 %; Mean Corpuscular Hemoglobin 29.5 pg (25-34); Mean Corpuscular Hgb Conc 32.4 g/dL (32-36); Mean Platelet Volume 10.1 fL (7.4-10.4); Monocytes # (auto) 0.46 K/uL (0.11-0.59); Monocytes % (auto) 11.9 %; Neutrophils # (auto) 2.56 K/uL (1.4-6.5); Neutrophils % (auto) 66.5 %; Platelet Count 175 K/uL (130-400); RDW Coefficient of Variation 13.7 % (11.5-14.5); RDW Standard Deviation 45.4 fL (36.4-46.3); White Blood Count 3.85 K/uL (4.8-10.8)
[2021-09-27 10:47] LABS: Alanine Aminotransferase 50 (12-78); Albumin Level 2.7 gm/dl (3.4-5.0); Aspartate Aminotransferase 80 U/L (15-37); BUN Creatinine Ratio 10.7 (10-20); Blood Urea Nitrogen 7 mg/dl (7-18); Calcium 8.4 mg/dl (8.5-10.1); Carbon Dioxide 24 mmol/L (21-32); Chloride 108 mmol/L (98-107); Creatinine Clr Calc Pharmacy 74.9 ml/min; Est GFR (African American) 115.2 ml/min; Est GFR (Non-African American) 99.4 ml/min; Glucose 100 mg/dl (70-99); Potassium 3.6 mmol/L (3.5-5.1); Sodium 141 mmol/L (136-145)
[2021-09-27 10:52] LABS: Albumin Globulin Ratio 0.8 (0.9-2); Alkaline Phosphatase 108 U/L (45-117); Bilirubin,Total 0.3 mg/dl (0.2-1); Globulin 3.6 gm/dl (2.5-4.0); NT Pro B Type Natriuretic Pept 276 pg/ml (0-900); Total Protein 6.3 gm/dl (6.4-8.2); Troponin I < 0.015 ng/ml (0-0.045)
[2021-09-27 10:56] LABS: D Dimer 1860 ug/L FEU (0-500)
[2021-09-27] MEDS ORDERED: ACETAMINOPHEN 500 MG TAB PO STA (11:02)
[2021-09-27] MEDS ORDERED: SODIUM CHLORIDE 0.9% 1000ML 1,000 ML IV STA (11:16)
[2021-09-27] MEDS ORDERED: CEFEPIME 2,000 MG/20 ML VIAL IV STA (11:16)
[2021-09-27] MEDS ORDERED: VANCOMYCIN CONSULT ACTIVE PRN ×2 (11:16→18:13)
[2021-09-27] MEDS ORDERED: SODIUM CHLORIDE 0.9% 1000ML 1,000 ML IV ONE (11:16)
[2021-09-27] MEDS ORDERED: VANCOMYCIN HCL 1,000 MG in SODIUM CHLORIDE 0.9% 500 ML IV ONE (11:16)
[2021-09-27] MEDS ORDERED: OPTIRAY 320 125ml IV ONE (11:30)
--- NOTE | 2021-09-27 11:31 | CT Scan Report ---
CT angio chest PE protocol CLINICAL HISTORY: SOB, hypoxia, +dimer COMPARISON STUDY: 07/11/2021 and portable chest from 09/27/2021 CT DOSE: 240.89 mGy.cm TECHNIQUE: CT Angio of the chest was performed.followed by image post processing with coronal, and s agittal MIP reformats. Contrast Volume: Optiray 320, 120 ml FINDINGS: Vasculature: There is homogeneous perfusion of the pulmonary vasculature bilaterally. No intraluminal filling defects or evidence for pulmonary embolus is seen. Airway: The airway is clear. No endobronchial lesion is identified. Lungs: The lungs are clear of acute alveolar opacities, air bronchograms or pulmonary nodules. Pleura: There is no evidence for pleural effusion. There is no evidence for pneumothorax. Mediastinum: There is no evidence for pathologic adenopathy. The heart size is within normal limits. The thoracic aorta is within normal limits. There is no evidence for pericardial effusion. Upper abdomen:The adrenal glands are normal bilaterally. Osseous structures: There is no acute osseous pathology. Impression: 1. No CTA evidence for pulmonary embolus. 2. No acute chest disease. ACT 112: Negative or not required by law. Electronically signed by: Alex Hernandez M.D. 09/27/2021 11:30 AM
[2021-09-27 11:40] LABS: Influenza A virus by PCR Negative (Neg); Influenza B virus by PCR Negative (Neg); RSV by PCR Negative (Neg); SARS CoV2 RNA(COVID-19) InHosp NEGATIVE (Negative)
[2021-09-27] MEDS ORDERED: SODIUM CHLORIDE 0.9% 1000ML 500 ML IV ONE (13:18)
--- NOTE | 2021-09-27 13:31 | History & Physical Report ---
Date of Service September 27, 2021 Assessment & Plan (1) Acute and chronic respiratory failure with hypoxia: (2) Lung disease, interstitial: (3) Sepsis: Plan: This is a 55 yo F with a PMH of parenchymal lung disease, chronic hypoxic respiratory failure on 4L NC and history of PMR who presents with fever and worsening hypoxia since yesterday. Ongoing health issues over the past 7 months starting after her second Pfizer vaccine dose this past May with extensive work-up- see HPI Currently [place] with [place] and [place] [facility] [place] and cards with dx of parenchymal lung disease, differential of cellular NSIP, hypersensitivity pneumonitis or less likely sarcoidosis or pulmonary vasc proteinosis Had been on 60mg prednisone daily x 4 weeks, then decreased to 10 and then 5mg daily 10 days ago in preparation of lung biopsy at [facility] [place] for tomorrow, 09/28/21 Since decreasing to 5mg pred daily, has developed intermittent fever and chills (tmax 38 C) Febrile at 38.1 C, BP 97/58, HR 120 WBC 3.85, lactate 2.7 -> 2, procal WNL CRP 4.52, ESR WNL, d-dimer 1,860 Covid, Flu, RSV PCR negative. BioFire respiratory panel negative CTA chest with no CTA evidence for pulmonary embolus and no acute chest disease Continue empiric cefepime and vanco. Follow blood cultures Concerned about component of adrenal insufficiency Discussed plan with marketing recruiter Dr. Rivera of [facility] pulm * Okay with increasing prednisone to 10-20mg daily * Obtain peripheral smear for ongoing leukopenia, repeat 2D echo, hepatitis panel * Upload CT images so chest radiologist at [facility] can review * Will eventually need lung biopsy as planned - consider transfer vs res cheduling as OP * Dr. Rivera available for questions or continued discussion of case by phone ([phone]) DVT Ppx: SQ Lovenox Code status: FULL PCP: Ashlee Dispo: Admitted to PCU Patient seen in collaboration with Dr. Dos Santos. Please see addendum. History of Present Illness Chief Complaint: fever, hypoxia Primary Care Provider: Rome Rosado MD This is a 55 yo F with a PMH of parenchymal lung disease, chronic hypoxic respiratory failure on 4L NC and history of PMR who presents with fever and worsening hypoxia since yesterday. Patient has had ongoing health issues over the past 7 months starting after her second Pfizer vaccine dose this past February. Patient first developed joint pain a month following vaccination that migrated and resolved with low-dose steroids. As of this past May, patient who is an avid walker at baseline started to develop dyspnea on exertion and by June was requiring 2 L nasal cannula O2. For the past 2 months, patient has been requiring 4 L nasal cannula O2 and steroid dose increased to 60 mg prednisone daily. Has been evaluated by pulmonology, thoracic surgery at [facility], rheumatology and cardiology. Underwent right heart cath with exercise in July and patient was found to have hypoxia with minimal increase in pulm A. pressure. Rheumatology workup showed mild elevation of liver enzymes but negative testing for antibodies seen in ANCA vasculitis, Sjogren's scleroderma and lupus. [facility] pulmonology diagnosed her with parenchymal lung disease with differential including cellular NSIP, hypersensitivity pneumonitis or less likely sarcoidosis or pulmonary vascular proteinosis. Under direction of pulmonology, began to taper prednisone to 10 mg daily and then to 5 mg daily approximately 10 days ago in preparation for lung biopsy scheduled for 09/28/21. When she tapered down to 5 mg daily, patient developed intermittent fever and chills (tmax 38 C). This morning, in addition to fever and chills patient felt more dyspneic and had some chest pain and came to ED for further evaluation. Denies any headache, lightheadedness, wheezing, cough, nausea, vomiting, abdominal pain, dysuria, diarrhea or constipation. Allergies Allergy/AdvReac Type Severity Reaction Status Date / Time amoxicillin AdvReac Severe DIARRHEA Verified 09/27/21 10:44 clavulanic acid AdvReac Severe DIARRHEA Verified 09/27/21 10:44 Home Medications Medication Instructions Recorded Confirmed Type acetaminophen 325 mg tablet 0 mg PO QID 09/27/21 09/27/21 History prednisone 5 mg tablet 5 mg PO DAILY 09/27/21 09/27/21 History Past Med/Surg History Medical History Fibroid uterus History of menorrhagia PMR (polymyalgia rheumatica) Surgical History H/O: hysterectomy History of colonoscopy Family History Other Asthma Breast cancer Cancer Diabetes Hypertension Pancreatic cancer Social History Smoking Status: Never smoker Second Hand Exposure: No; Do You Dip or Chew Tobacco: No; Tobacco Cessation Education Requested by Patient: No Hx Alcohol Use: No Hx Substance Use: Yes Preferred Language: Malay [employer] Required: No Beliefs That Will Affect Care: None Current Living Situation: Spouse Other Information That Helps Us Care for You: No Feels Safe at Home: Yes Safety Concerns: Feels Safe At This Time Assistive Devices: None Review of Systems Review of Systems: At least ten systems reviewed and negative except as noted in the HPI. Physical Exam Physical Exam: Please see Dr. Dos Santos's addendum for physical exam. Results & Data Results & Data ([facility]) Vital Signs (Past 12 Hours) Vital Signs Temp Pulse Resp BP Pulse Ox 09/27/21 12:16 38.1 C H 09/27/21 10:26 39.6 C H 114 H 24 136/89 100 09/27/21 10:15 100 Laboratory Results Short CBC 09/27/21 Range/Units 10:15 WBC 3.85 L (4.8-10.8) K/uL Hgb 12.1 (12.0-16.0) g/dL Hct 37.3 (37-47) % Plt Count 175 (130-400) K/uL Anaplasma Smear See Comment BMP 09/27/21 10:15 Sodium 141 Potassium 3.6 Chloride 108 H Carbon Dioxide 24 BUN 7 Creatinine 0.69 Glucose 100 H Calcium 8.4 L Cardiac Enzymes 09/27/21 Range/Units 10:15 Troponin I < 0.015 (0-0.045) ng/ml Liver Function 09/27/21 Range/Units 10:15 Total Bilirubin 0.3 (0.2-1) mg/dl AST 80 H (15-37) U/L ALT 50 (12-78) Alkaline Phosphatase 108 (45-117) U/L Albumin 2.7 L (3.4-5.0) gm/dl Diagnostic Findings Chest X-Ray 09/27/21 10:12 XR chest 1V portable CLINICAL HISTORY: Dyspnea TECHNIQUE: Single frontal radiograph of the chest was obtained. Comparison: Comparison is made to chest one view 07/19/2031 FINDINGS: No lines and tubes are seen. The cardiomediastinal silhouette is normal. The lungs are clear. No evidence of pleural effusion or pneumothorax. IMPRESSION: No acute chest disease. ACT 112: Negative or not required by law. Electronically signed by: Ronni Downey M.D. 09/27/2021 10:21 AM Chest CTA 09/27/21 11:02 CT angio chest PE protocol CLINICAL HISTORY: SOB, hypoxia, +dimer COMPARISON STUDY: 07/11/2021 and portable chest from 09/27/2021 CT DOSE: 240.89 mGy.cm TECHNIQUE: CT Angio of the chest was performed.followed by image post processing with coronal, and sagittal MIP reformats. Contrast Volume: Optiray 320, 120 ml FINDINGS: Vasculature: There is homogeneous perfusion of the pulmonary vasculature bilaterally. No intraluminal filling defects or evidence for pulmonary embolus is seen. Airway: The airway is clear. No endobronchial lesion is identified. Lungs: The lungs are clear of acute alveolar opacities, air bronchograms or pulmonary nodules. Pleura: There is no evidence for pleural effusion. There is no evidence for pneumothorax. Mediastinum: There is no evidence for pathologic adenopathy. The heart size is within normal limits. The thoracic aorta is within normal limits. There is no evidence for pericardial effusion. Upper abdomen:The adrenal glands are normal bilaterally. Osseous structures: There is no acute osseous pathology. Impression: 1. No CTA evidence for pulmonary embolus. 2. No acute chest disease. ACT 112: Negative or not required by law. Electronically signed by: Alex Hernandez M.D. 09/27/2021 11:30 AM Supervising Physician Co-Signing Physician Notes Pt is a 55 y/o F with hx of recent onset PMR, parenchymal lung disease with home oxygen requirement (2L) admitted for acute respiratory failure. -per pt initially she started having diffuse joint pain/swelling and hypoxia with SOB after the 2nd Pfizer vaccine. She was started on high dose of prednisone 60mg for 4 weeks. Which helped a lot with joint pain and hypoxia. After completion of prednisone (prednisone was stopped w/o tapering)pt was r equiring 2L of oxygen however with discontinuing the prednisone pts SOB worsened and she started to experience fever (temp of 38.5 C) and chills. Due to worsening symptoms she was restarted on prednisone 10mg; with restarting prednisone pts symptoms improved a little per pt however symptoms started to worsen when the prednisone was decreased to 5mg daily. -Her outpt workup for autoimmune cause has been negative, PFTs showed decrease in FVC and DLCO. She was sched to get lung biopsy @ [facility] on 09/28/21 Exam: -in respiratory distress, NC in place (4L) -Lungs: CTA, good air entry b/l, no wheezing - Cardiac: normal S1/S2, no murmur -Abd: ND, NT, soft -MSk: no LE edema, no rash -Psych: AAOx3, normal affect A/P: Acute on Chronic respiratory failure: -discussed case with Dr. Rivera (Pulm @ [facility]) ----recommended increase in prednisone dose, hepatitis panel, peripheral smear, repeat Echo, and antibiotic empirically ----- since the procal and CTA chest are neg/normal: if the BCx is also neg then I would recommend the discontinuation of abx -CTA chest: no PE & no Acute disease -procal: neg -Biofire viral panel: neg -BCx sent -will start the pt on prednisone 20mg daily & continue on 4L NC - D-dimer is elevated; similar to previous value - outpt pulm follow up up on discharge Possible adrenal insufficiency due to recent use of high dose prednisone: -no significant electrolytes abnormalities but Bp is slightly low- will start the pt on prednisone 20mg daily and continue to monitor Vitals Agree with A/P by Jyoti Flores PA-C
[2021-09-27 14:15] LABS: Procalcitonin 0.16 ng/ml (0-0.5)
[2021-09-27 14:23] LABS: Lyme Ab IgG w/WB Rflx Negative (Negative); Lyme Ab IgM w/WB Rflx Negative (Negative)
[2021-09-27 15:06] LABS: Adenovirus PCR Not Detected (NotDetected); Bordetella parapertussis PCR Not Detected (NotDetected); Bordetella pertussis PCR Not Detected (NotDetected); Chlamydia pneumoniae PCR Not Detected (NotDetected); Coronavirus 229E PCR Not Detected (NotDetected); Coronavirus CoV-2 (COVID19)PCR Not Detected (NotDetected); Coronavirus HKU1 PCR Not Detected (NotDetected); Coronavirus NL63 PCR Not Detected (NotDetected); Coronavirus OC43PCR Not Detected (NotDetected); Human Metapneumovirus PCR Not Detected (NotDetected); Influenza A PCR Not Detected (NotDetected); Influenza B PCR Not Detected (NotDetected); Mycoplasma pneumoniae PCR Not Detected (NotDetected); Parainfluenza Virus 1 PCR Not Detected (NotDetected); Parainfluenza Virus 2 PCR Not Detected (NotDetected); Parainfluenza Virus 3 PCR Not Detected (NotDetected); Parainfluenza Virus 4 PCR Not Detected (NotDetected); Respiratory Syncytial VirusPCR Not Detected (NotDetected); Rhinovirus/Enterovirus PCR Not Detected (NotDetected)
[2021-09-27 15:47] LABS: Echinocytes 1+
--- NOTE | 2021-09-27 16:36 | Electrocardiogram Report ---
Test Reason : Blood Pressure : / mmHG Vent. Rate : 123 BPM Atrial Rate : 123 BPM P-R Int : 122 ms QRS Dur : 078 ms QT Int : 294 ms P-R-T Axes : 060 058 072 degrees QTc Int : 420 ms Sinus tachycardia Nonspecific T wave abnormality Abnormal ECG When compared with ECG of 19-JUL-2021 09:11, Vent. rate has increased BY 51 BPM Confirmed by Iftikhar Staton ([id number]) on 09/27/2021 4:35:47 PM Referred By: REFERRED SELF Confirmed By:Iftikhar Staton
[2021-09-27] MEDS ORDERED: predniSONE 10 MG TABLET PO STA (16:52)
[2021-09-27] MEDS ORDERED: predniSONE 20 MG TAB PO STA (17:27)
[2021-09-27] MEDS ORDERED: POLYETHYLENE (MIRALAX) 17 GM PACK PO PRN (18:22)
[2021-09-27] MEDS ORDERED: ACETAMINOPHEN 325 MG TAB PO PRN (18:22)
[2021-09-27] MEDS ORDERED: ONDANSETRON INJ 2 MG/ML 2 ML VIAL IV PRN (18:22)
[2021-09-27] MEDS: CEFEPIME 2,000 MG in SYRINGE 0 ML IV SCH (19:46)
[2021-09-27] MEDS: ENOXAPARIN INJ 40 MG/0.4 ML SYR SQ SCH (19:46)
[2021-09-27 20:08] LABS: Appearance Urine Clear (Clear); Bilirubin Urine Negative (Negative); Blood Urine Negative (Negative); Color Urine Yellow; Glucose Urine UA Negative (Negative); Ketones Urine Negative (Negative); Leukocyte Esterase Urine Negative (Negative); Nitrite Urine Negative (Negative); Protein Urine Negative (Negative); Specific Gravity Urine 1.018 (1.000-1.030); Urobilinogen Urine Negative (Negative); pH Urine 5.5 (4.5-7.5)
[2021-09-28] MEDS: CEFEPIME 2,000 MG in SYRINGE 0 ML IV SCH ×3 (04:47→20:09)
[2021-09-28 07:38] LABS: Hemoglobin 11.1 g/dL (12.0-16.0); Mean Corpuscular Hemoglobin 29.1 pg (25-34); Mean Corpuscular Hgb Conc 31.7 g/dL (32-36); Mean Corpuscular Volume 91.9 fL (80-100); Mean Platelet Volume 9.9 fL (7.4-10.4); Platelet Count 192 K/uL (130-400); RDW Coefficient of Variation 13.8 % (11.5-14.5); RDW Standard Deviation 46.2 fL (36.4-46.3); Red Blood Count 3.81 M/uL (4.2-5.4)
[2021-09-28 08:14] LABS: BUN Creatinine Ratio 17.4 (10-20); Calcium 8.5 mg/dl (8.5-10.1); Creatinine Clr Calc Pharmacy 114.7 ml/min; Est GFR (African American) 128.9 ml/min; Est GFR (Non-African American) 111.2 ml/min; Potassium 4.1 mmol/L (3.5-5.1)
[2021-09-28] MEDS: predniSONE 20 MG TAB PO SCH (09:11)
[2021-09-28] MEDS: SODIUM CHLORIDE 0.9% 1000ML 1,000 ML IV SCH ×2 (09:13→20:12)
[2021-09-28 09:30] LABS: Hepatitis B Surf Ag Rflx Conf Neg (Neg)
[2021-09-28 09:59] LABS: Hepatitis C IgG 13Yrs+Old_Rflx Neg (Neg)
--- NOTE | 2021-09-28 16:59 | XRay Report ---
XR chest 1V portable CLINICAL HISTORY: ff up for hypoxia TECHNIQUE: Single frontal radiograph of the chest was obtained. Comparison: Comparison is made to chest one view 09/27/2021 FINDINGS: No lines and tubes are seen. The cardiomediastinal silhouette is normal. The lungs are clear. No evid ence of pleural effusion or pneumothorax. IMPRESSION: No acute chest disease. ACT 112: Negative or not required by law. Electronically signed by: Ronni Downey M.D. 09/28/2021 4:57 PM
--- NOTE | 2021-09-28 19:36 | Hospitalist Progress Note ---
Date of Service September 28, 2021 Assessment & Plan (1) Acute and chronic respiratory failure with hypoxia: (2) Lung disease, interstitial: (3) Sepsis: Plan: per admitting C notes with addendum: This is a 55 yo F with a PMH of parenchymal lung disease, chronic hypoxic respiratory failure on 4L NC and history of PMR who presents with fever and worsening hypoxia since yesterday. Ongoing health issues over the past 7 months starting after her second Pfizer va ccine dose this past May with extensive work-up- see HPI Currently following with pulm and thoracic surgery at [facility] [place], rheum and cards with dx of parenchymal lung disease, differential of cellular NSIP, hypersensitivity pneumonitis or less likely sarcoidosis or pulmonary vasc proteinosis Had been on 60mg prednisone daily x 4 weeks, then decreased to 10 and then 5mg daily 10 days ago in preparation of lung biopsy at [facility] [place] scheduled for tomorrow, 09/28/21 Since decreasing to 5mg pred daily, has developed intermittent fever and chills (tmax 38 C) Febrile at 38.1 C, BP 97/58, HR 120 WBC 3.85, lactate 2.7 -> 2, procal WNL CRP 4.52, ESR WNL, d-dimer 1,860 Covid, Flu, RSV PCR negative. BioFire respiratory panel negative CTA chest with no CTA evidence for pulmonary embolus and no acute chest disease Continue empiric cefepime and vanco. Follow blood cultures Concerned about component of adrenal insufficiency Discussed plan with academic advising director Dr. Rivera of [facility] pul * Okay with increasing prednisone to 10-20mg daily * Obtain peripheral smear for ongoing leukopenia, repeat 2D echo, hepatitis panel * Upload CT images so chest radiologist at [facility] [place] can review * Will eventually need lung biopsy as planned - consider transfer vs rescheduling as OP * Dr. Rivera available for questions or continued discussion of case by phone ([phone]) POSSIBLE FLARE UP OF INTERSTITIAL LUNG DISEASE subjectively feels improved now on 4 L nasal cannula repeat CXR: no acute findings continue Prednisone 20mg po daily FEVER Biofire panel: negative blood culture: pending continue Cefepime IV POSSIBLE MILD ADRENAL INSUFFICIENCY discussed with Dr. Rivera- Pulm at [facility] recommend Hydrocortisone 50mg q8h monitor BP DVT Ppx: SQ Lovenox Code status: FULL PCP: Ashlee Dispo: Admitted to PCU plan of care discussed with patient and her in detail and at length all questions answered they are understanding, agreeable, comfortable with the plan of care Admission and Anticipated Discharge Date Admission Date: September 27, 2021 Subjective ff up for fever, hypoxia etc seen resting in bed, comfortable states she feels better today overall breathing better at rest still has dyspnea with minimal exertion no chest pain, palpitations, dizziness no headache, sore throat, cough, sputum, abdominal pain, problems with urination or BM no other symptoms very eager to go home Review of Systems Review of Systems: all noted and negative except for above Physical Exam Physical Exam: General- oriented x 3, not in distress, speaks in sentences with no effort or accessory muscle use Head- atraumatic Eyes- PERRL, EOMI, anicteric ENT- oropharynx clear Neck- supple, no JVD, no adenopathy, no thyromegaly; carotids +2/2, no bruits appreciated Lungs- clear to auscultation bilaterally, no rales/wheezes Heart- normal rate, regular rhythm; no murmur, no gallop, no rub appreciated Abdomen- normal bowel sounds, nondistended, soft, nontender, no masses or hepatosplenomegaly Extremities- no pretibial edema, no calf tenderness; peripheral pulses intact Neuro- alert, oriented x 3; CN 2-12 grossly intact; motor 5/5 bilaterally;sensation 100% on all extremities; no other gross focal neurologic deficits Skin- warm & dry Results & Data Results & Data ([facility]) Vital Signs (Past 12 Hours) Vital Signs Temp Pulse Pulse Resp BP BP Pulse Ox 09/28/21 15:53 37.1 C 71 18 102/65 98 09/28/21 11:52 36.7 C 80 16 93/55 L 98 09/28/21 10:09 36.8 C 84 18 93/53 L 97 all noted and reviewed including below
[2021-09-28] MEDS: HYDROCORTISONE SOD 50 MG in SYRINGE 0 ML IV SCH (20:06)
[2021-09-28] MEDS: ENOXAPARIN INJ 40 MG/0.4 ML SYR SQ SCH (20:07)
[2021-09-29] MEDS: HYDROCORTISONE SOD 50 MG in SYRINGE 0 ML IV SCH ×3 (04:04→20:49)
[2021-09-29] MEDS: CEFEPIME 2,000 MG in SYRINGE 0 ML IV SCH ×2 (04:04→13:45)
[2021-09-29 04:47] LABS: Hepatitis A Antibody IgM NON-REACTIVE (NON-REACTIVE); Hepatitis B Core Antibody IgM NON-REACTIVE (NON-REACTIVE)
[2021-09-29 06:26] LABS: Hematocrit (blood only) 34.1 % (37-47); Hemoglobin 10.9 g/dL (12.0-16.0); Mean Corpuscular Hemoglobin 29.4 pg (25-34); Mean Corpuscular Volume 91.9 fL (80-100); Mean Platelet Volume 9.4 fL (7.4-10.4); Platelet Count 210 K/uL (130-400); RDW Coefficient of Variation 13.7 % (11.5-14.5); RDW Standard Deviation 45.7 fL (36.4-46.3); Red Blood Count 3.71 M/uL (4.2-5.4); White Blood Count 6.17 K/uL (4.8-10.8)
[2021-09-29 06:57] LABS: BUN Creatinine Ratio 15.6 (10-20); Calcium 8.9 mg/dl (8.5-10.1); Creatinine Clr Calc Pharmacy 95.2 ml/min; Est GFR (African American) 121.3 ml/min; Est GFR (Non-African American) 104.6 ml/min; Potassium 3.9 mmol/L (3.5-5.1)
[2021-09-29] MEDS: predniSONE 20 MG TAB PO SCH ×2 (08:31→09:56)
[2021-09-29] MEDS: SODIUM CHLORIDE 0.9% 1000ML 1,000 ML IV SCH ×2 (08:31→20:51)
--- NOTE | 2021-09-29 17:05 | Hospitalist Progress Note ---
Date of Service September 29, 2021 Assessment & Plan (1) Acute and chronic respiratory failure with hypoxia: (2) Lung disease, interstitial: (3) Sepsis: Plan: This is a 55 yo F with a PMH of parenchymal lung disease, chronic hypoxic respiratory failure on 4L NC and history of PMR who presents with fever and worsening hypoxia since yesterday. Ongoing health issues over the past 7 months starting after her second Pfizer vaccine dose this past May with extensive work-up- see HPI Currently following with pulm and thoracic [place] [facility] [place], rheum and cards with dx of parenchymal lung disease, differential of cellular NSIP, hypersensitivity pneumonitis or less likely sarcoidosis or pulmonary vasc proteinosis Had been on 60mg prednisone daily x 4 weeks, then decreased to 10 and then 5mg daily 10 days ago in preparation of lung biopsy at [facility] [place] for tomorrow, 09/28/21 Since decreasing to 5mg pred daily, has developed intermittent fever and chills (tmax 38 C) Febrile at 38.1 C, BP 97/58, HR 120 WBC 3.85, lactate 2.7 -> 2, procal WNL CRP 4.52, ESR WNL, d-dimer 1,860 Covid, Flu, RSV PCR negative. BioFire respiratory panel negative CTA chest with no CTA evidence for pulmonary embolus and no acute chest disease Continue empiric cefepime. Vanco discontinued with negative MRSA swab. Follow blood cultures -> negative so far Discussed plan with edi architect Dr. Rivera of [facility] pulm * Increased prednisone to 20mg daily * Obtain peripheral smear for ongoing leukopenia, repeat 2D echo, hepatitis panel * Upload CT images so chest radiologist at [facility] [place] can review * Will eventually need lung biopsy as planned - consider transfer vs rescheduling as OP * Dr. Rivera available for questions or continued discussion of case by phone ([phone]) MILD ADRENAL INSUFFICIENCY In setting of reduced steroids as OP Increased prednisone to 20mg daily but BP still low. Per recommendation from Dr. Rivera, started IV hydrocortisone 50mg Q8H with significant improvement of symptoms Plan to discharge home on 20mg prednisone with endocrine follow up BP improved today - 113/72 POSSIBLE FLARE UP OF INTERSTITIAL LUNG DISEASE subjectively feels improved now on 4 L nasal cannula repeat CXR: no acute findings continue Prednisone 20mg po daily FEVER Biofire panel: negative blood culture: pending continue Cefepime IV DVT Ppx: SQ Lovenox Code status: FULL PCP: Ashlee Dispo: Admitted to PCU. Plan for discharge home tomorrow Admission and Anticipated Discharge Date Admission Date: September 27, 2021 Supervising Physician Co-Signing Physician Notes Attending Addendum: care coordinated with MARK Flores please refer to her notes for full details, I agree with her notes patient seen and examined, records reviewed by myself as well on exam, patient seen resting in bed, comfortable sitting up states she feels improved today less fatigue, dyspnea with exertion no other symptoms VS noted and reviewed oriented x 3 , not in distress, speaks in sentences with no effort nor accessory muscle use normal rate, regular rhythm, no murmurs clear breath sounds bilaterally non distended, soft, nontender no bipedal edema, erythema, warmth no neuro deficits WBC 6 Hg 10 Crea 0.5 ASSESSMENT AND PLAN> POSSIBLE PARENCHYMAL LUNG DISEASE FLARE UP respiratory status stable continue Prednisone 20mg po daily POSSIBLE MILD ADRENAL INSUFFICIENCY BP improving continue Hydrocortisone q8h other diagnoses and plan of care as per RADHA Flores's notes Jaspal Fields MD Subjective Patient seen and examined in 382-2 in follow-up for fever and hypoxia in setting of known parenchymal disease. Feeling much improved today, especially on hydrocortisone. Able to ambulate to the bathroom and back without any issue on 4 L nasal cannula. Denying dyspnea at rest. No fever, chills, chest pain, palpitations, dizziness. No headache, sore throat, cough, abdominal pain, dysuria, diarrhea or constipation. Review of Systems Review of Systems: At least ten systems reviewed and negative except as noted in the HPI. Physical Exam Physical Exam: Gen: WD/WN, NAD, sitting in bed, A&Ox3 HEENT: Normocephalic, atraumatic, conjunctivae moist, sclerae anicteric, mucous membranes moist Lung: Clear to Auscultation bilaterally, no wheezes/rales/rhonchi Heart: Regular rate, regular rhythm, no murmurs, rubs, or gallops Abdomen: Soft, NT, ND +BS x 4 Extremities: no edema Skin: Warm, no rash Results & Data Results & Data ([facility]) Vital Signs (Past 12 Hours) Vital Signs Temp Pulse Resp BP Pulse Ox 09/29/21 15:29 36.9 C 79 16 113/72 96 12/09/21 07:27 36.8 C 72 16 116/75 99 Laboratory Results Short CBC 09/29/21 Range/Units 06:13 WBC 6.17 (4.8-10.8) K/uL Hgb 10.9 L (12.0-16.0) g/dL Hct 34.1 L (37-47) % Plt Count 210 (130-400) K/uL BMP 09/29/21 06:13 Sodium 141 Potassium 3.9 Chloride 110 H Carbon Dioxide 24 BUN 9 Creatinine 0.59 L Glucose 153 H Calcium 8.9 Diagnostic Findings Chest X-Ray 09/27/21 10:12 XR chest 1V portable CLINICAL HISTORY: Dyspnea TECHNIQUE: Single frontal radiograph of the chest was obtained. Comparison: Comparison is made to chest one view 07/19/2031 FINDINGS: No lines and tubes are seen. The cardiomediastinal silhouette is normal. The lungs are clear. No evidence of pleural effusion or pneumothorax. IMPRESSION: No acute chest disease. ACT 112: Negative or not required by law. Electronically signed by: Ronni Downey M.D. 09/27/2021 10:21 AM Chest CTA 09/27/21 11:02 CT angio chest PE protocol CLINICAL HISTORY: SOB, hypoxia, +dimer COMPARISON STUDY: 07/11/2021 and portable chest from 09/27/2021 CT DOSE: 240.89 mGy.cm TECHNIQUE: CT Angio of the chest was performed.followed by image post processing with coronal, and sagittal MIP reformats. Contrast Volume: Optiray 320, 120 ml FINDINGS: Vasculature: There is homogeneous perfusion of the pulmonary vasculature bilaterally. No intraluminal filling defects or evidence for pulmonary embolus is seen. Airway: The airway is clear. No endobronchial lesion is identified. Lungs: The lungs are clear of acute alveolar opacities, air bronchograms or pulmonary nodules. Pleura: There is no evidence for pleural effusion. There is no evidence for pneumothorax. Mediastinum: There is no evidence for pathologic adenopathy. The heart size is within normal limits. The thoracic aorta is within normal limits. There is no evidence for pericardial effusion. Upper abdomen:The adrenal glands are normal bilaterally. Osseous structures: There is no acute osseous pathology. Impression: 1. No CTA evidence for pulmonary embolus. 2. No acute chest disease. ACT 112: Negative or not required by law. Electronically signed by: Alex Hernandez M.D. 09/27/2021 11:30 AM Chest X-Ray 09/28/21 16:13 XR chest 1V portable CLINICAL HISTORY: ff up for hypoxia TECHNIQUE: Single frontal radiograph of the chest was obtained. Comparison: Comparison is made to chest one view 09/27/2021 FINDINGS: No lines and tubes are seen. The cardiomediastinal silhouette is normal. The lungs are clear. No evidence of pleural effusion or pneumothorax. IMPRESSION: No acute chest disease. ACT 112: Negative or not required by law. Electronically signed by: Ronni Downey M.D. 09/28/2021 4:57 PM
[2021-09-29] MEDS: ENOXAPARIN INJ 40 MG/0.4 ML SYR SQ SCH (20:49)
[2021-09-30] MEDS: HYDROCORTISONE SOD 50 MG in SYRINGE 0 ML IV SCH (04:36)
[2021-09-30 07:31] LABS: Creatinine Clr Calc Pharmacy 112.4 ml/min; Est GFR (African American) 128.1 ml/min; Est GFR (Non-African American) 110.5 ml/min
[2021-09-30] MEDS: predniSONE 20 MG TAB PO SCH (08:36)
[2021-09-30] MEDS: SODIUM CHLORIDE 0.9% 1000ML 1,000 ML IV SCH (11:30)
[2021-09-30] MEDS ORDERED: HYDROCORTISONE 10 MG TAB PO ONE ×2 (15:54→16:15)
--- NOTE | 2021-09-30 18:07 | Discharge Summary ---
Date of Service September 30, 2021 Admission HPI Per Admitting Provider This is a 55 yo F with a PMH of parenchymal lung disease, chronic hypoxic respiratory failure on 4L NC and history of PMR who presents with fever and worsening hypoxia since yesterday. Patient has had ongoing health issues over the past 7 months starting after her second Pfizer vaccine dose this past February. Patient first developed joint pain a month following vaccination that migrated and resolved with low-dose steroids. As of this past May, patient who is an avid walker at baseline started to develop dyspnea on exertion and by June was requiring 2 L nasal cannula O2. For the past 2 months, patient has been requiring 4 L nasal cannula O2 and steroid dose increased to 60 mg prednisone daily. Has been evaluated by pulmonology, thoracic surgery at [place], rheumatology and cardiology. Underwent right heart cath with exercise in July and patient was found to have hypoxia with minimal increase in pulm A. pressure. Rheumatology workup showed mild elevation of liver enzymes but negative testing for antibodies seen in ANCA vasculitis, Sjogren's scleroderma and lupus. [place] pulmonology diagnosed her with parenchymal lung disease with differential including cellular NSIP, hypersensitivity pneumonitis or less likely sarcoidosis or pulmonary vascular proteinosis. Under direction of pulmonology, began to taper prednisone to 10 mg daily and then to 5 mg daily approximately 10 days ago in preparation for lung biopsy scheduled for 09/28/21. When she tapered down to 5 mg daily, patient developed intermittent fever and chills (tmax 38 C). This morning, in addition to fever and chills patient felt more dyspneic and had some chest pain and came to ED for further evaluation. Denies any headache, lightheadedness, wheezing, cough, nausea, vomiting, abdominal pain, dysuria, diarrhea or constipation. Admission Exam Per Admitting Provider In respiratory distress, NC in place (4L) Lungs: CTA, good air entry b/l, no wheezing Cardiac: normal S1/S2, no murmur Abd: ND, NT, soft MSk: no LE edema, no rash Psych: AAOx3, normal affect Principal Diagnosis Acute on chronic respiratory failure with hypoxia, interstitial lung disease, possible adrenal insufficiency Discharge Exam Gen: WD/WN, NAD, sitting in bed, A&Ox3 HEENT: Normocephalic, atraumatic, conjunctivae moist, sclerae anicteric, mucous membranes moist Lung: Clear to Auscultation bilaterally, no wheezes/rales/rhonchi Heart: Regular rate, regular rhythm, no murmurs, rubs, or gallops Abdomen: Soft, NT, ND +BS x 4 Extremities: no edema Skin: Warm, no rash Discharge Data Allergies Allergy/AdvReac Type Severity Reaction Status Date / Time amoxicillin AdvReac Severe DIARRHEA Verified 09/27/21 10:44 clavulanic acid AdvReac Severe DIARRHEA Verified 09/27/21 10:44 Consultations 09/27/21 13:10 ED Decision to Admit Stat Ordered Studies 09/27/21 11:02 CT angio chest PE protocol Stat Hospital Course (1) Acute and chronic respiratory failure with hypoxia: (2) Lung disease, interstitial: (3) Sepsis: (4) Adrenal insufficiency: This is a 55 yo F with a PMH of parenchymal lung disease, chronic hypoxic respiratory failure on 4L NC and history of PMR who presents with fever and worsening hypoxia. Has had ongoing health issues over the past 7 months starting after her second Pfizer vaccine dose this past February, first developing joint pain followed by dyspnea on exertion. For the past 2 months, patient has been requiring 4 L nasal cannula O2 and steroid dose increased to 60 mg prednisone daily. Has been evaluated by pulmonology, thoracic surgery at [place], rheumatology and cardiology. Underwent right heart cath with exercise in July and patient was found to have hypoxia with minimal increase in pulm A. pressure. Rheumatology workup showed mild elevation of liver enzymes but negative testing for antibodies seen in ANCA vasculitis, Sjogren's scleroderma and lupus. [place] pulmonology diagnosed her with parenchymal lung disease with differential including cellular NSIP, hypersensitivity pneumonitis or less likely sarcoidosis or pulmonary vascular proteinosis. Under direction of pulmonology, began to taper prednisone to 10 mg daily and then to 5 mg daily approximately 10 days ago in preparation for lung biopsy scheduled for 09/28/21. When she tapered down to 5 mg daily, patient developed intermittent fever and chills (tmax 38 C) as well as hypotension During admission, underwent extensive infectious work-up that was negative - no growth on blood cultures, respiratory bio fire negative including Covid, flu and RSV. CTA chest with no CT evidence for pulmonary embolus and no acute chest disease. Lyme serology negative, hepatitis panel negative, peripheral blood smear without significant morphologic findings. Neoplastic process not evident. Patient thought to have possible flare-up of parenchymal lung disease in setting of reduced steroids and possible adrenal insufficiency also considered. Discussed case with Dr. Rivera of [place] pulmonology, who recommend increasing prednisone to 20 mg daily. Later during admission, also required IV hydrocortisone in setting of possible adrenal insufficiency. Discussed case with Dr. Fuentes of endocrinology who recommended discharge on p.o. Hydrocortisone 20mg PO every morning and 10mg PO 8 hours later upon discharge until she can be seen in endocrine clinic for follow-up in a few weeks. Per Dr. Rivera, plan to continue 20 mg prednisone daily. Follow-up in [place] pulmonology clinic with ultimate goal of lung biopsy once patient clinically stable. Patient back to respiratory baseline of 2-4L NC upon discharge and hemodynamically stable. Attending Addendum: delayed entry date of service noted above care coordinated with MARK Flores please refer to her notes for full details, I agree with her notes patient seen and examined, records reviewed by myself as well on exam, patient seen resting in bed, comfortable in good spirits states she feels much better overall no chest pain, dyspnea, palpitations, dizziness no other symptoms VS noted and reviewed oriented x 3 , not in distress, speaks in sentences with no effort nor accessory muscle use normal rate, regular rhythm, no murmurs clear breath sounds bilaterally non distended, soft, nontender no bipedal edema, erythema, warmth no neuro deficits all noted and reviewed ASSESSMENT AND PLAN POSSIBLE PARENCHYMAL LUNG DISEASE FLARE UP respiratory status improved continue Prednisone 20mg po daily Pulm ff up POSSIBLE MILD ADRENAL INSUFFICIENCY BP improved continue Hydrocortisone po at home , Endo ff up other diagnoses and plan of care as per RADHA Flores's notes Jaspal Fields MD Total Time Total Time Spent Total Time Spent (In Minutes): 45 Discharge Plan Discharge Items Patient Disposition: Home - Self-Care Reason For Visit: FEVER,HYPOXIA Discharge Diagnosis: Acute on chronic respiratory failure with hypoxia, interstitial lung disease, possible adrenal insufficiency Activity: Resume your previous activity Non-emergency contact: Primary Care Provider Call non-emergency contact if: you have any medication questions, your symptoms worsen, your pain is not controlled and you have a fever Follow-up/Referrals: Rome Rosado MD [Primary Care Provider] - (Date & Time 10/04/2021 11:00 AM Provider Rome Rosado III, MD [facility] ) Diet: Regular Addtl Attending Provider Instructions: You were admitted for hypoxia and fevers in setting of interstitial lung disease. MEDICATION CHANGES: Hydrocortisone 20mg PO every morning and 10mg PO 8 hours later. Please continue this regimen until you follow up with endocrinology in clinic in 3 weeks. Continue prednisone 20mg daily SUMMARY OF TEST RESULTS: * No growth on blood cultures * Covid, Flu and RSV negative on PCR testing * Respiratory Bio Fire negative * CTA chest with no CTA evidence for pulmonary embolus and no acute chest disease * Lyme serology negative * Hepatitis panel negative * Peripheral blood smear with no significant morphologic findings. Neoplastic process not evident. Neutropenia may be a side effect of various medications or concern for underlying autoimmune process PENDING TEST RESULTS: * Anaplasma DNA pending RECOMMENDATIONS FOR FOLLOW-UP: Hospital follow up appointment with Dr. Rosado on 10/04/2021 at 11:[address] Rivera to coordinate follow up appointment with [place] pulmonology. Endocrinology office to call to set up follow up appointment with Dr. Fuentes in 3 weeks. OTHER INSTRUCTIONS: Seek medical attention if you have: * temperature above 101 * chest pain or trouble breathing * abdominal pain, nausea, vomiting * diarrhea, dark stools or bloody stools * any unanswered questions or concerns Call 911 if symptoms are severe. Please take good care of yourself. Call if you have any questions or problems. You can reach a [facility] hospitalist on duty at [facility] 24 hours a day by calling [phone]. Jyoti Flores PA-C [facility] Hospitalist Pending Studies at Discharge: Yes Studies:: Anaplasma DNA Stand-Alone Forms: My [facility], Smoking Cessation Medications and DC Order Prescriptions: New prednisone 20 mg Tablet 20 mg PO DAILY Qty: 30 RF: 0 hydrocortisone 20 mg tablet 20 mg PO DAILY Qty: 30 RF: 0 hydrocortisone 10 mg tablet 10 mg PO DAILY Qty: 30 RF: 0 Changed acetaminophen 325 mg Tablet 0 mg PO QID PRN (Reason: pain or fever) Qty: 0 RF: 0 Discontinued prednisone 5 mg tablet 5 mg PO DAILY RF: 0 Discharge Orders: Discharge Order (Routine); Ordered 09/30/21 Ordered By: Jyoti Flores Admission Data Admit Date/Time: 09/27/21 14:02 Attending Provider: Jaspal Fields Admit Provider: Tala Dos Santos Primary Care Provider: Rome Rosado Other Providers: Jyoti Flores Other Interventions: Discharge Summary Assessment (RN) Last Done: 09/30/21 16:13
--- NOTE | 2021-10-11 14:42 | Coding Query ---
SEPSIS To promote full compliance with coding requirements relating to patient care, physician participation is requested in all cases of outpatient coder uncertainty. Please assist us with the question(s) below: In responding to this query, please exercise your independent professional judgement. The fact that a question is asked does not imply that any particular answer is desired or expected. We appreciate your clarification on this issue. Throughout the medical record, you have clearly documented a localized infection and your patient has clinical evidence of a generalized sepsis or severe sepsis. The term urosepsis is a nonspecific entity and is coded as an UTI. If the patient has sepsis, severe sepsis, from an urinary source or some other source, please clarify in your response below. The medical record reflects the following clinical findings: Pt admitted with acute /chronic resp failure with hypoxia in the setting of interstitial lung diseas and adrenal insufficiency. Progress notes mention Sepsis .. Please check the phrase that applies. Thanks for your help. Aleks Miramontes [facility] ____ ( )Bacteremia (Nonspecific laboratory finding of bacteria in the blood) Specify Organism ( ) Present on Admission ( ) Not present on admission ( ) Unable to clinically determine ( ) Septicemia (Systemic disease associated with the presence of pathogenic microorganisms in the blood): Specify Organism ( ) Present on Admission ( ) Not present on admission ( ) Unable to clinically determine ( ) Sepsis Specify Organism Specify Associated Condition/Diagnosis ( ) Present on Admission ( ) Not present on admission ( ) Unable to clinically determine ( ) Severe Sepsis (Sepsis associated with acute organ dysfunction) Specify Organism Specify Associated Condition/Diagnosis ( ) Present on Admission ( ) Not present on admission ( ) Unable to clinically determine ( ) Septic Shock (Severe sepsis with acute circulatory failure, unexplained by other causes) ( ) Present on Admission ( ) Not present on admission ( ) Unable to clinically determine ( ) Other, patient has: Possible Parenchymal Lung Disease Flare Up, Adrenal Insufficiency MTDD
== END 2021-09-30 17:09 | disposition home or self-care (01) | DRG 189 ==
LOC: ED 10:01 → SUATTDRO 14:02 → EDINP 14:02 → 2S 18:07 → 3N 09-28 16:21